=== PATIENT | male | born 1945 | race Caucasian/White ===

== ENCOUNTER → 2016-05-01 | Outpatient (CLI) | payer MEDICARE, OTHER ==
[~2016-05-01] MED LIST: ASPI-587 PO; CATHETER FLUSH 10 ML SYR IV PRN; DULA1.5P SQ; EZET10TA23 PO; GLIP10TA13 PO; HYDR-3730 PO; IOHEXOL 350 MG/ML 150 ML (OMNIPAQUE 350) VIAL IV ONE; MTF500T PO; NS 100 ML (IVPB) BAG IV ONE; OXYC-197 PO; SIMV20TA3 PO
--- OUTSIDE RECORDS SUMMARY | 2016-05-01 10:44 | XMS REPORT | Continuity of Care Document ---
Author Author [facility] Organization [facility] Address Unknown Phone Unavailable Allergies Active Description Code Type Severity Reaction Onset Reported/Identified Relationship to Patient Clinical Status Yes No Allergy Information Available [id number] Drug Allergy Unknown N/A 08/11/2014 Yes No Known Drug Allergies [id number] Drug Allergy Unknown N/ A 08/25/2014 Medications Problems Date Dx Coded Attending Type Code Diagnosis Diagnosed By 03/24/2014 ROBERTO ROY, BETTY R Ot 440.20 03/24/2014 ROBERTO ROY, BETTY R Ot 729.5 03/25/2014 ROBERTO ROY, BETTY R Ot 440.20 03/25/2014 ROBERTO ROY, BETTY R Ot 729.5 03/30/2014 ROBERTO ROY, BETTY R Ot 440.20 03/30/2014 ROBERTO ROY, BETTY R Ot 729.5 03/30/2014 ROBERTO ROY, BETTY R Ot 789.01 03/30/2014 ROBERTO ROY, BETTY R Ot 789.05 05/14/2014 ROBERTO ROY, BETTY R Ot 789.01 05/14/2014 ROBERTO ROY, BETTY R Ot 789.05 06/07/2014 ROBERTO ROY, BETTY R Ot 440.20 06/07/2014 ROBERTO ROY, BETTY R Ot 729.5 06/07/2014 ROBERTO ROY, BETTY R Ot 789.01 06/07/2014 ROBERTO ROY, BETTY R Ot 789.05 06/18/2014 ROBERTO ROY, BETTY R Ot 440.20 06/18/2014 ROBERTO ROY, BETTY R Ot 729.5 06/18/2014 ROBERTO ROY, BETTY R Ot 789.01 06/18/2014 ROBERTO ROY, BETTY R Ot 789.05 08/26/2014 PAVEL ROY, MAYITO Ot 250.00 DIAB PACO WO COMPL, TYPE II OR UNSPEC TY 08/26/2014 PAVEL ROY, MAYITO Ot 574.10 CHOLELITH W CHOLECYS NEC 09/02/2014 ROBERTO ROY, BETTY R Ot 789.09 09/10/2014 ROBERTO ROY, BETTY R Ot 789.09 09/22/2014 PAVEL ROY, MAYITO Ot 574.20 09/22/2014 PAVEL ROY, ETHELAAKI Ot V72.63 09/22/2014 PAVEL ROY, TAKAAKI Ot V72.81 09/22/2014 PAVEL ROY, TAKAAKI Ot V72.83 09/22/2014 PAVEL ROY, TAKAAKI Ot V74.8 10/15/2014 PAVEL ROY, ETHELAAALONZO Ot 574.20 10/15/2014 PAVEL ROY, TAKAAKI Ot V72.63 10/15/2014 PAVEL ROY, TAKAAKI Ot V72.81 10/15/2014 PAVEL ROY, TAKAAKI Ot V72.83 10/15/2014 PAVEL ROY, TAKAAKI Ot V74.8 12/08/2014 Ot R63.4 12/28/2014 PAVEL ROY, MAYITO Ot E11.9 TYPE 2 DIABETES MELLITUS WITHOUT COMPLIC 12/28/2014 PAVEL ROY, MAYITO Ot K43.2 INCISIONAL HERNIA WITHOUT OBSTRUCTION OR 12/29/2014 Ot R63.4 01/20/2015 Ot R63.4 05/02/2015 ROBERTO ROY, BETTY R Ot I71.4 05/02/2015 ROBERTO ROY, BETTY R Ot J43.9 05/02/2015 ROBERTO ROY, BETTY R Ot N28.89 05/02/2015 ROBERTO ROY, BETTY R Ot R91.1 05/24/2015 ROBERTO ROY, BETTY R Ot I71.4 05/24/2015 ROBERTO ROY, BETTY R Ot J43.9 05/24/2015 ROBERTO ROY, BETTY R Ot N28.89 05/24/2015 ROBERTO ROY, BETTY R Ot R91.1 06/08/2015 ROBERTO ROY, BETTY R Ot I71.4 ABDOMINAL AORTIC ANEURYSM, WITHOUT RUPTU 06/08/2015 ROBERTO ROY, BETTY R Ot J43.9 EMPHYSEMA, UNSPECIFIED 06/08/2015 BETTY MEJIA MD Ot N28.89 OTHER SPECIFIED DISORDERS OF KIDNEY AND 06/08/2015 BETTY MEJIA MD Ot R91.1 SOLITARY PULMONARY NODULE 07/20/2015 BETTY MEJIA MD Ot 440.20 ATHEROSCLEROSIS NORTHWAY ARTERIES EXTREMIT 07/20/2015 BETTY MEJIA MD Ot 729.5 PAIN IN LIMB 07/20/2015 BETTY MEJIA MD Ot 789.01 ABDOMINAL PAIN, RIGHT UPPER QUADRANT 07/20/2015 BETTY MEJIA MD Ot 789.05 ABDOMINAL PAIN, PERIUMBILIC 07/20/2015 BETTY MEJIA MD Ot 789.09 ABDOMINAL PAIN, OTHER SPECIFIED SITE 07/20/2015 MAYITO ZHAO MD Ot 574.20 CHOLELITHIASIS NOS 07/20/2015 MAYITO ZHAO MD Ot V72.63 PRE-PROCEDURAL LABORATORY EXAMINATION 07/20/2015 MAYITO ZHAO MD Ot V72.81 NGDX-XAN-HSFNOMMIY CARDIOVASCULAR 07/20/2015 MAYITO ZHAO MD Ot V72.83 EXAM PRE-OPERATIVE NEC 07/20/2015 MAYITO ZHAO MD Ot V74.8 SCREEN-BACTERIAL DIS NEC 07/20/2015 Ot R63.4 ABNORMAL WEIGHT LOSS 07/20/2015 MAYITO ZHAO MD Ot K43.2 INCISIONAL HERNIA WITHOUT OBSTRUCTION OR 07/20/2015 MAYITO ZHAO MD Ot Z01.818 ENCOUNTER FOR OTHER PREPROCEDURAL EXAMIN 07/20/2015 MAYITO ZHAO MD Ot Z11.2 ENCOUNTER FOR SCREENING FOR OTHER BACTER 07/20/2015 BETTY MEJIA MD Ot I71.4 ABDOMINAL AORTIC ANEURYSM, WITHOUT RUPTU 07/20/2015 BETTY MEJIA MD Ot J43.9 EMPHYSEMA, UNSPECIFIED 07/20/2015 BETTY MEJIA MD Ot N28.89 OTHER SPECIFIED DISORDERS OF KIDNEY AND 07/20/2015 BETTY MEJIA MD Ot R91.1 SOLITARY PULMONARY NODULE 10/05/2015 BETTY MEJIA MD Ot 440.20 ATHEROSCLEROSIS NORTHWAY ARTERIES EXTREMIT 10/05/2015 BETTY MEJIA MD Ot 729.5 PAIN IN LIMB 10/05/2015 BETTY MEJIA MD Ot 789.01 ABDOMINAL PAIN, RIGHT UPPER QUADRANT 10/05/2015 BETTY MEJIA MD Ot 789.05 ABDOMINAL PAIN, PERIUMBILIC 10/05/2015 BETTY MEJIA MD Ot 789.09 ABDOMINAL PAIN, OTHER SPECIFIED SITE 10/05/2015 MAYITO ZHAO MD Ot 574.20 CHOLELITHIASIS NOS 10/05/2015 MAYITO ZHAO MD Ot V72.63 PRE-PROCEDURAL LABORATORY EXAMINATION 10/05/2015 MAYITO ZHAO MD Ot V72.81 AWGD-RER-[id number] CARDIOVASCULAR 10/05/2015 MAYITO ZHAO MD Ot V72.83 EXAM PRE-OPERATIVE NEC 10/05/2015 MAYITO ZHAO MD Ot V74.8 SCREEN-BACTERIAL DIS NEC 10/05/2015 Ot R63.4 ABNORMAL WEIGHT LOSS 10/05/2015 MAYITO ZHAO MD Ot K43.2 INCISIONAL HERNIA WITHOUT OBSTRUCTION OR 10/05/2015 MAYITO ZHAO MD Ot Z01.818 ENCOUNTER FOR OTHER PREPROCEDURAL EXAMIN 10/05/2015 MAYITO ZHAO MD Ot Z11.2 ENCOUNTER FOR SCREENING FOR OTHER BACTER 10/05/2015 BETTY MEJIA MD Ot I71.4 ABDOMINAL AORTIC ANEURYSM, WITHOUT RUPTU 10/05/2015 BETTY MEJIA MD Ot J43.9 EMPHYSEMA, UNSPECIFIED 10/05/2015 BETTY MEJIA MD Ot N28.89 OTHER SPECIFIED DISORDERS OF KIDNEY AND 10/05/2015 BETTY MEJIA MD Ot R91.1 SOLITARY PULMONARY NODULE 10/06/2015 BETTY MEJIA MD R Ot I71.4 ABDOMINAL AORTIC ANEURYSM, WITHOUT RUPTU 10/06/2015 BETTY MEJIA MD Ot R91.1 SOLITARY PULMONARY NODULE 10/28/2015 BETTY MEJIA MD Ot I71.4 ABDOMINAL AORTIC ANEURYSM, WITHOUT RUPTU 10/28/2015 BETTY MEJIA MD Ot R91.1 SOLITARY PULMONARY NODULE 11/07/2015 BETTY MEJIA MD Ot I71.4 ABDOMINAL AORTIC ANEURYSM, WITHOUT RUPTU 11/07/2015 BETTY MEJIA MD Ot R91.1 SOLITARY PULMONARY NODULE 11/21/2015 SEGLIE MD, BETTY R Ot G62.9 POLYNEUROPATHY, UNSPECIFIED 11/21/2015 BETTY MEJIA MD R Ot M25.551 PAIN IN RIGHT HIP 11/21/2015 BETTY MEJIA MD R Ot M79.604 PAIN IN RIGHT LEG 12/15/2015 BETTY MEIJA MD R Ot G62.9 POLYNEUROPATHY, UNSPECIFIED 12/15/2015 BETTY MEJIA MD R Ot M25.551 PAIN IN RIGHT HIP 12/15/2015 BETTY MEJIA MD R Ot M79.604 PAIN IN RIGHT LEG 01/31/2016 BETTY MEJIA MD R Ot 440.20 ATHEROSCLEROSIS NORTHWAY ARTERIES EXTREMIT 01/31/2016 BETTY MEJIA MD R Ot 729.5 PAIN IN LIMB 01/31/2016 BETTY MEJIA MD R Ot 789.01 ABDOMINAL PAIN, RIGHT UPPER QUADRANT 01/31/2016 BETTY MEJIA MD R Ot 789.05 ABDOMINAL PAIN, PERIUMBILIC 01/31/2016 BETTY MEJIA MD R Ot 789.09 ABDOMINAL PAIN, OTHER SPECIFIED SITE 01/31/2016 MAYITO ZHAO MD Ot 574.20 CHOLELITHIASIS NOS 01/31/2016 MAYITO ZHAO MD Ot V72.63 PRE-PROCEDURAL LABORATORY EXAMINATION 01/31/2016 MAYITO ZHAO MD Ot V72.81 [id number]-[id number] CARDIOVASCULAR 01/31/2016 MAYITO ZHAO MD Ot V72.83 EXAM PRE-OPERATIVE NEC 01/31/2016 MAYITO ZHAO MD Ot V74.8 SCREEN-BACTERIAL DIS NEC 01/31/2016 Ot R63.4 ABNORMAL WEIGHT LOSS 01/31/2016 MAYITO ZHAO MD Ot K43.2 INCISIONAL HERNIA WITHOUT OBSTRUCTION OR 01/31/2016 MAYITO ZHAO MD Ot Z01.818 ENCOUNTER FOR OTHER PREPROCEDURAL EXAMIN 01/31/2016 MAYITO ZHAO MD Ot Z11.2 ENCOUNTER FOR SCREENING FOR OTHER BACTER 01/31/2016 BETTY MEJIA MD Ot I71.4 ABDOMINAL AORTIC ANEURYSM, WITHOUT RUPTU 01/31/2016 BETTY MEJIA MD Ot J43.9 EMPHYSEMA, UNSPECIFIED 01/31/2016 BETTY MEJIA MD R Ot N28.89 OTHER SPECIFIED DISORDERS OF KIDNEY AND 01/31/2016 BETTY MEJIA MD R Ot R91.1 SOLITARY PULMONARY NODULE 01/31/2016 BETTY MEJIA MD R Ot I71.4 ABDOMINAL AORTIC ANEURYSM, WITHOUT RUPTU 01/31/2016 BETTY MEJIA MD R Ot R91.1 SOLITARY PULMONARY NODULE 01/31/2016 BETTY MEJIA MD R Ot G62.9 POLYNEUROPATHY, UNSPECIFIED 01/31/2016 BETTY MEJIA MD R Ot M25.551 PAIN IN RIGHT HIP 01/31/2016 BETTY MEJIA MD R Ot M79.604 PAIN IN RIGHT LEG 02/01/2016 BETTY MEJIA MD R Ot R07.89 OTHER CHEST PAIN 02/27/2016 BETTY MEJIA MD R Ot R07.89 OTHER CHEST PAIN 03/07/2016 BETTY MEJIA MD R Ot R07.89 OTHER CHEST PAIN Procedures Results Test Result Range [id number] - 10/05/15 09:13 Serum or plasma urea nitrogen measurement (mass/volume) 11 mg/dL 7-18 Serum or plasma creatinine measurement (mass/volume) 1.13 mg /dL 0.60-1.30 Serum or plasma urea nitrogen/creatinine mass ratio 10 NRG Serum or plasma creatinine measurement with calculation of estimated glomerular filtration rate > NRG Encounters ACCT No. Visit Date/Time Discharge Status Pt. Type Provider Facility Loc./Unit Complaint [id number] 12/28/2014 08:26:00 2014 13:30:00 DIS Outpatient MAYITO ZHAO MD [facility] VENTAL INCISIONAL HERNIA [id number] 12/27/2014 13:14:00 2014 23:59:59 CLS Outpatient MAYITO ZHAO MD [facility] PREOP VENTERAL INCISIONAL HERNIA [id number] 08/26/2014 09:55:00 2014 17:25:00 DIS Outpatient MAYITO ZHAO MD [facility] GALLSTONES [id number] 08/25/2014 13:11:00 2014 23:59:59 CLS Outpatient MAYITO ZHAO MD [facility] PREOP GALLSTONES [id number] 08/11/2014 10:52:00 2014 23:59:59 CLS Outpatient BETTY MEJIA MD [facility] RAD PAIN ELEVATED IN LAST TWO WEEKS [id number] 03/24/2014 11:02:00 2014 23:59:59 CLS Outpatient BETTY MEJIA MD [facility] RAD PAIN RUQ RT PARA UMBILICAL [id number] 11/03/2012 14:36:00 2012 23:59:59 CLS Outpatient BETTY MEJIA MD [facility] RAD BILAT LEG PAIN [id number] 01/31/2016 14:36:00 ACT Outpatient BETTY MEJIA MD [facility] RAD LT SIDED CHEST WALL PAIN [id number] 10/28/2015 09:20:00 ACT Outpatient BETTY MEJIA MD [facility] RAD PAIN RT ISCHIUM [id number] 10/05/2015 08:57:00 ACT Outpatient BETTY MEJIA MD [facility] RAD LEFT LUNG NODULE, AAA [id number] 04/28/2015 13:38:00 ACT Outpatient BETTY MEJIA MD [facility] RAD AORTIC ANEURYSM,LEFT LUNG BASE NODULE [id number] 12/06/2014 15:40:00 Document Registration
[2016-05-01 11:21] LABS: BLOOD UREA NITROGEN 9 MG/DL (7-18); BUN/CREATININE RATIO 8; CREATININE SERUM 1.17 MG/DL (0.60-1.30); GFR ESTIMATED > 60
--- NOTE | 2016-05-01 12:55 | Diagnostic Imaging Report ---
PROCEDURE: CT chest, abdomen, and pelvis with contrast. TECHNIQUE: Multiple contiguous axial images were obtained through the chest, abdomen, and pelvis after the administration of intravenous contrast. INDICATION: AAA. Followup lung nodule. 125 mL of Omnipaque 350 is administered intravenously. Coronal and sagittal reconstructions are performed. Comparison exams from 10/05/15 are reviewed. FINDINGS: CT chest: There is a pulmonary nodule in the left lower lobe axial image 76 measuring 6 mm stable from prior exams and appears to be present also on 03/24/2014 exam. The two-year stability is suggestive of benign etiology, probably a postinfectious scar. Bilateral upper lobe predominant emphysema changes are seen. The lungs demonstrate no significant consolidation or mass. The heart size is normal. The thoracic aorta is dilated with maximum caliber of the ascending aorta at 4.3 cm. This is similar to 10/05/2015 exam. There is a borderline sized precarinal lymph node measuring 1 cm in short axis. There is also 1.6 cm right hilar lymph node. The left hilum demonstrates no adenopathy and there is no axillary lymphadenopathy. The osseous structures appear grossly unremarkable. CT abdomen and pelvis: There is an infrarenal AAA with maximum caliber of 3.2 cm. This is stable from 10/05/2015 exam. There is significant irregular mostly soft and some calcified plaque seen with an ulcerated plaque within the mid posterior aspect of the aneurysm. The celiac trunk and SMA have a common origin, a normal variation. There is an accessory left renal artery with stenosis of severe degree in its takeoff. There is mild to moderate stenosis also in the main left renal artery. The right renal artery demonstrates plaque with mild to moderate stenosis. Urinary bladder has diffuse wall thickening, may relate to chronic obstructive changes. There are central nonspecific calcifications of the prostate gland which is minimally enlarged at 5 cm transverse dimension. There is no bowel obstruction. The liver, the spleen, the pancreas, and the adrenal glands appear unremarkable. The common and external and internal iliac arteries demonstrate generally mild disease and are patent. No para-aortic significantly enlarged lymph nodes. No pelvic lymphadenopathy seen. There is suggestion of prior ventral hernia repair with no recurrence seen. The osseous structures appear grossly unremarkable. IMPRESSION: CT chest: 1. Stable 6 mm left lower lobe pulmonary nodule compatible with benign etiology. 2. Ascending aortic aneurysm measuring up to 4.3 cm without significant change from prior exams. 3. Emphysema. 4. Borderline sized lymph nodes in the right hilum and precarinal station of questionable significance. CT abdomen and pelvis: Stable 3.2 cm infrarenal AAA. There is prominent soft and ulcerated atherosclerotic plaque within the aneurysm. Dictated by: Dictated on workstation # [id number]
== END ==
LOC: RAD 10:39
PROVIDERS: ATTEND Family Medicine
DX: I71.4 Abdominal aortic aneurysm, without rupture (principal); R91.1 Solitary pulmonary nodule; J43.9 Emphysema, unspecified
CPT/HCPCS: 36415; 71260; 74177; 82565; 84520

== ENCOUNTER → 2016-11-15 | Outpatient (CLI) | payer MEDICARE, OTHER ==
[~2016-11-15] MED LIST changes: -CATHETER FLUSH 10 ML SYR IV PRN; -IOHEXOL 350 MG/ML 150 ML (OMNIPAQUE 350) VIAL IV ONE; -NS 100 ML (IVPB) BAG IV ONE
--- NOTE | 2016-11-15 12:24 | Diagnostic Imaging Report ---
PROCEDURE: MRI lumbar spine. TECHNIQUE: Multiplanar, multisequence MRI of the lumbar spine was performed without contrast. INDICATION: Low back pain. FINDINGS: The alignment of the lumbar spine is satisfactory. There is mild reduction of the vertebral body heights and the central aspect of mid and lower lumbar spine levels. The pattern is suggestive of depression of endplates from Schmorl's nodes rather than related to compression fractures. There is no significant marrow signal abnormality in the vertebral bodies. Mild marrow edema is seen in the right pedicle at L4 level. This appears to be related to adjacent facet arthropathy involving L3-L4 and L4-L5 right facet joints which demonstrate small effusions and degenerative changes. There is disc desiccation at all levels with no significant disc height loss at any level. The cauda equina and conus medullaris appear grossly unremarkable. T12-L1: No disc herniation, no spinal canal or foraminal stenosis. L1-L2: No disc herniation, no spinal canal or foraminal stenosis. L2-L3: There is no disc herniation. There is ludo-ck-adlagnbr facet arthropathy. No central canal stenosis. There is afsg-mw-koykdemo lateral recess stenosis on the left side. No lateral recess stenosis on the right. The foramina demonstrate mild stenosis on the right side only at this level. L3-L4: There is a mild asymmetric disc bulge with no significant posterior component. There is bilateral foraminal and lateral compartments. The facet joints demonstrate moderate arthropathy. No central canal stenosis. The lateral recess demonstrates mild stenosis on the left and no significant stenosis on the right. The foramina demonstrate mild stenosis bilaterally. L4-L5: There is a diffuse disc bulge and bilateral moderate facet arthropathy. No central canal stenosis. There is mild lateral recess stenosis on the left. Bilateral foraminal stenosis mild on the left and moderate on the right is seen. There is no disc herniation. Mild facet arthropathy seen. No central canal or lateral recess stenosis. There is vdhm-bi-eyqeylnk foraminal narrowing only on the right side. The left foramen is patent. IMPRESSION: Generally mild degenerative disc and facet changes. Dictated by: Dictated on workstation # [id number]
== END ==
LOC: RAD 09:07
PROVIDERS: ATTEND Internal Medicine
DX: M54.5 Low back pain (principal)
CPT/HCPCS: 72148

== ENCOUNTER → 2016-11-28 | Outpatient (CLI) | payer MEDICARE, OTHER ==
--- NOTE | 2016-11-28 15:24 | Diagnostic Imaging Report ---
PROCEDURE: MRI left joint lower extremity without contrast. TECHNIQUE: Multiplanar, multisequence non contrast-enhanced MRI of the left lower extremity was accomplished. INDICATION: Left knee pain. FINDINGS: There is minimal suprapatellar effusion. No Poe's cyst. The extensor mechanism is intact. The PCL and the ACL are both intact. The lateral meniscus appears intact. There is an oblique tear involving the posterior horn of the medial meniscus extending to the body of the meniscus. Anterior horn is intact. There is minimal extension of the tear to the posterior root of the medial meniscus. The MCL and the lateral collateral ligament complex components appear to be intact. The articular cartilage demonstrates mild diffuse thinning in the medial compartment with relatively preserved cartilage in the lateral and patellofemoral compartments. No significant bone marrow signal abnormality. IMPRESSION: 1. Prominent oblique tear involving the posterior horn of the medial meniscus with extension into the body of the meniscus and minimal extension into the posterior root. 2. Mild thinning of the cartilage in the medial compartment compatible with degenerative changes. Dictated by: Dictated on workstation # [id number]
== END ==
LOC: RAD 13:01
PROVIDERS: ATTEND Internal Medicine
DX: S83.242A Other tear of medial meniscus, current injury, left knee, initial encounter (principal); X58.XXXA Exposure to other specified factors, initial encounter; Y99.8 Other external cause status
CPT/HCPCS: 73721

== ENCOUNTER 2017-01-02 11:25 | Day surgery (SDC) | payer MEDICARE, OTHER ==
--- NOTE | 2016-12-24 15:51 | HISTORY AND PHYSICAL ---
DATE OF SERVICE: LAST-FOUR SOCIAL SECURITY: 6908 This will be for outpatient surgery on 01/02/2017, for a left knee arthroscopy. HISTORY OF PRESENT ILLNESS: The patient is a 71-year-old gentleman with complaints of left knee pain. He reports he has had left knee pain since September. He reports that episodes of catching, locking and giving way. He ultimately underwent an MRI that showed evidence of a complex tear of the posterior horn and body of the medial meniscus. He reports no prior history of knee problems. He does report some back pain but denies paresthesias. REVIEW OF SYSTEMS: No chest pain, no shortness of breath, and no dysuria. PAST MEDICAL HISTORY: Diabetes, hypercholesterolemia, atherosclerotic heart disease, and abdominal herniorrhaphy. PAST SURGICAL HISTORY: CABG, cardiac catheterization, cholecystectomy, and herniorrhaphy. FAMILY HISTORY: Coronary artery disease, diabetes. Primary care provider is Dr. Gupta. MEDICATIONS: Zetia, simvastatin, Synjardy, aspirin, and tramadol. ALLERGIES: No known drug allergies. SOCIAL HISTORY: The patient is a current smoker. He smokes 1 pack per day. He drinks alcohol socially. Radiographs revealed mild medial patellofemoral joint space narrowing. PHYSICAL EXAMINATION: GENERAL: The patient is well developed and well-nourished, in no acute distress. HEENT: Normocephalic, atraumatic. Pupils are equal, round, and reactive to light. Oropharynx is clear. NECK: Supple, no lymphadenopathy. LUNGS: Clear to auscultation bilaterally. HEART: Regular rate and rhythm. ABDOMEN: Soft, nontender, and nondistended. EXTREMITIES: The left knee demonstrates range of motion 0/0/135. He has positive drawers with audible click medially. He is tender along his medial joint line and slight effusion. No varus valgus laxity, negative anterior and posterior drawer, and negative Marcel. IMPRESSION: Medial meniscal tear with associated chondromalacia. PLAN: Left knee arthroscopy, chondroplasty and partial meniscectomy. The risks, benefits, options ramifications and recovery were discussed at length with the patient. He understands and wishes to proceed. Job ID: [id number] DocumentID: [id number] Dictated Date: 12/24/2016 14:18:32 Range Ecologist Date: 12/24/2016 15:51:03 Dictated By: GREG RIOS MD
[~2017-01-02] VITALS: Ht 180.3 cm; Wt 81.0 kg
[~2017-01-02 11:25] MED LIST changes: +ASPI-999 PO; +EMPA1TAB5 PO; +EZET10TA27 PO; +TRAM50TA2 PO
[2017-01-02] MEDS ORDERED: ceFAZolin 1 GM/NS 50 ML IVPB IV ONE ×2 (11:45)
--- NOTE | 2017-01-02 11:51 | Progress Note-Pre Operative ---
Pre-Operative Progress Note H&P Reviewed The H&P was reviewed, patient examined and no changes noted. Date Seen by Provider: Jan 02, 2017 Time Seen by Provider: 11:45 Date H&P Reviewed: Jan 02, 2017 Time H&P Reviewed: 11:51 Pre-Operative Diagnosis: left knee medial meniscus tear and chondromalacia GREG RIOS MD Jan 02, 2017 11:51
--- NOTE | 2017-01-02 11:52 | Progress Note-Post Operative ---
Post-Operative Progess Note Surgeon (s)/Slot Floor Attendant (s) Surgeon GREG RIOS MD Slot Floor Attendant: Osito Mcneill Pre-Operative Diagnosis left knee medial meniscus tear and chondromalacia Post-Operative Diagnosis left knee medial meniscus tear and chondromalacia of the medial femoral condyle Procedure & Operative Findings Date of Procedure 01/02/17 Procedure Performed/Findings left knee arthroscopic partial medial meniscectomy and chondroplasty of the medial femoral condyle Anesthesia Type GETA Estimated Blood Loss Estimated blood loss (mL): minimal Specimens/Packing Specimens Removed none Packing: none GREG RIOS MD Jan 02, 2017 11:52
[2017-01-02] MEDS ORDERED: HYDROcodone/APAP 7.5 MG/325 MG (LORTAB, LORCET PLUS) TABLET PO PRN (12:00)
[2017-01-02] MEDS ORDERED: LACTATED RINGERS 1,000 ML IV PRN (12:37)
[2017-01-02] MEDS ORDERED: MIDAZOLAM 2 MG/2 ML (VERSED) VIAL IV ONE (13:00)
[2017-01-02] MEDS ORDERED: BUPIVACAINE 0.25% 30 ML (SENSORCAINE) VIAL ONE (13:03)
[2017-01-02] MEDS ORDERED: morphine PF (DURAMORPH) 10 MG/10 ML AMP ONE (13:03)
[2017-01-02] MEDS ORDERED: proPOfol 200 MG/20 ML (DIPRIVAN) VIAL IV ONE (13:48)
[2017-01-02] MEDS ORDERED: LIDOCAINE PF 2% 5 ML (XYLOCAINE) VIAL ONE (13:48)
[2017-01-02] MEDS ORDERED: SEVOFLURANE (ULTANE) 15 ML INHAL SOLN ONE (13:48)
[2017-01-02] MEDS ORDERED: fentaNYL INJECTION 100 MCG/2 ML AMP ONE (13:48)
[2017-01-02] MEDS ORDERED: ONDANSETRON 4 MG/2 ML (SDV) Z0FRAN ONE (13:48)
[2017-01-02] MEDS: LACTATED RINGERS 1,000 ML IV PRN ×2 (14:05→14:19)
[2017-01-02] MEDS ORDERED: ONDANSETRON 4 MG/2 ML (SDV) Z0FRAN IVP PRN (14:45)
[2017-01-02] MEDS ORDERED: morphine INJ 10 MG/ML 1ML (SYR OR VIAL) IVP PRN (14:45)
[2017-01-02 15:35] VITALS: BP 178/85
[2017-01-02 16:05] VITALS: BP 188/84
[2017-01-02 16:06] VITALS: BP 188/84
--- NOTE | 2017-01-02 16:58 | Physical Therapy Ortho Eval ---
PT Orthopedic Evaluation Type of Surgery Knee Scope (left) Prior Level of Function Current Living Status: Spouse Locomotion (Upon Admit): Independent Established Durable Medical Eq: Crutches Subjective Subjective Agreeable and no complaints. Entry Into Home: Stairs With Railing Steps Into Home: 3 Motor Control Motor Control: Motor Control WNL ROM ROM: WFL Strength Strength: WFL Transfer Transfers (B, C, W/C) (FIM): 5 (6 at discharge) Gait Gait Assistive Device: Crutches Right Lower Extremity: Right Weight Bearing Status RLE: Weight Bearing/Tolerated Left Lower Extremity: Left Weight Bearing Status LLE: Weight Bearing/Tolerated Gait (FIM): 5 (6 at discharge) Distance (FIM): 3=150 ft Summary/Comments Instruction in 2 crutch and 1 crutch gait. Safe with both. Educated on safety with crutches. Treatment Rendered Treatment: Therapeutic Exercises, Gait Train, Step Train Exercise Instruction: Quad Sets, Straight Leg Raise, Heel Slides Assessment/Goals Goal Time Frame: 1 Visit Understands HEP: Yes Safe Ambulation: Yes Plan Treatment Plan: Discharge PT/Family Agrees to Plan: Yes Time Time In: 1415 Time Out: 1635 Total Billed Treatment Time: 20 Billed Treatment Time visit EVL PT/OT Therapy GCodes Therapy Functional Limitation: Physical Therapy Test(s)/Tool used to determine: Level of Assistance Scale Functional Limitation-Current Charge Code: MOBCUR Modifier: CJ Functional Limitation-Goal Charge Code: MOBGOAL Modifier: CI Functional Limitation-D/C Charge Codes: MOBDC Modifier: CI KEELY VILLA PT Jan 02, 2017 16:58
--- NOTE | 2017-01-02 19:15 | OPERATIVE REPORT ---
DATE OF SERVICE: 01/02/2017 PREOPERATIVE DIAGNOSIS: Left knee medial meniscal tear. POSTOPERATIVE DIAGNOSES: 1. Left knee medial meniscal tear. 2. Left knee chondromalacia of the medial femoral condyle. PROCEDURES: 1. Left knee arthroscopic partial medial meniscectomy. 2. Left knee arthroscopic chondroplasty of the medial femoral condyle. SURGEON: Robin Rios MD. MEDIA ACCOUNT EXECUTIVE: Osito Mcneill, who assisted throughout the procedure and closed the incisions. ANESTHESIA: General endotracheal by Dr. Booker. TOURNIQUET TIME: Not applicable. ESTIMATED BLOOD LOSS: Minimal. DRAINS: None. COMPLICATIONS: None. POSTOPERATIVE PLAN: Routine arthroscopy protocol. The patient was transported to the recovery room awake and in stable condition. STATEMENT OF MEDICAL NECESSITY: The patient is a 71-year-old gentleman with complaints of left medial knee pain, catching, locking and swelling. An MRI revealed a posterior horn and body medial meniscus tear. He complained of popping and catching in his knee and due to functional impairment and failure to improve with conservative measures, the patient elected to proceed with surgical intervention. Examination under anesthesia revealed range of motion 0/0/135 with a negative Marcel, negative anterior, posterior drawer. No varus valgus laxity, negative pivot shift. Arthroscopic findings patellar trochlea demonstrated no gross chondral abnormalities. The medial and lateral gutters were clear. Lateral compartment demonstrated no significant meniscal or chondral pathology. The ACL and PCL were intact. The medial compartment demonstrated complex tear of the posterior horn and body of the medial meniscus involving approximately 1/2 of the posterior horn and body in addition to grade II-III chondral flaps over the central lateral aspect of the femoral condyle in a 10 x 15 area. PROCEDURE IN DETAIL: After risks and benefits of procedure were discussed and questions were answered, informed consent signed and placed in the chart. The operative site was confirmed preoperatively initialed by surgeon. The patient was then transported to the operating room and after adequate levels of general endotracheal anesthetic were taken, a timeout was called confirming the operative site. Examination under anesthesia was performed with the above findings noted. Both lower extremities then prepped and draped in the usual sterile fashion. The knee joint was injected with 60 mL of fluid and a standard inferolateral portal was placed with the arthroscope under direct visualization, inferior medial portal was created. The menisci and cruciates were carefully probed with the above findings noted. The unstable chondral flaps in the medial femoral condyle were debrided with the shaver back to a stable edge. The posterior horn and body of the medial meniscus were debrided with the biter and shaver removing approximately 1/2 the posterior horn and body. This was carefully probed with no further tearing or instability noted. The knee was copiously irrigated. Port sites were closed with 3-0 nylon in simple interrupted fashion. Knee was injected with Duramorph. The portal sites were infiltrated with plain Marcaine and a soft dressing was applied and the patient was transported to the recovery room, awake and in stable condition. Job ID: [id number] DocumentID: [id number] Dictated Date: 01/02/2017 14:42:42 Telephone Recorder Date: 01/02/2017 19:14:53 Dictated By: ROBIN RIOS MD
== END 2017-01-02 16:40 | disposition home or self-care (01) ==
LOC: SDC 11:25
PROVIDERS: ATTEND Orthopaedic Surgery
DX: M23.8X2 Other internal derangements of left knee (principal); M94.262 Chondromalacia, left knee; E11.9 Type 2 diabetes mellitus without complications; E78.00 Pure hypercholesterolemia, unspecified; I25.10 Atherosclerotic heart disease of native coronary artery without angina pectoris; Z95.1 Presence of aortocoronary bypass graft; F17.210 Nicotine dependence, cigarettes, uncomplicated; Z87.442 Personal history of urinary calculi
CPT/HCPCS: 82962

== ENCOUNTER → 2017-01-29 | Outpatient (CLI) | payer MEDICARE, OTHER ==
--- NOTE | 2017-01-29 12:43 | Diagnostic Imaging Report ---
Ultrasound of the aorta. INDICATION: Abdominal aortic aneurysm. FINDINGS: The abdominal aorta is 2.5 cm in caliber proximally, 2.6 cm at mid segment and 3 x 3.5 cm distally. The largest caliber on previous CT of 05/01/2016 is 3.2 cm. Flow is seen with color Doppler. The common iliac arteries are not visualized. IMPRESSION: Infrarenal AAA up to 3.5 cm in caliber, compared to 3.2 cm measurement on 05/01/2016 CT scan. Dictated by: Dictated on workstation # [id number]
== END ==
LOC: RAD 07:18
PROVIDERS: ATTEND Internal Medicine
DX: I71.2 Thoracic aortic aneurysm, without rupture (principal)
CPT/HCPCS: 76775

== ENCOUNTER → 2017-03-12 | Outpatient (CLI) | payer MEDICARE, OTHER ==
[~2017-03-12] MED LIST changes: +IOHEXOL 350 MG/ML 100 ML (OMNIPAQUE 350) VIAL IV ONE; +NS 100 ML (IVPB) BAG IV ONE
[2017-03-12 09:38] LABS: BUN/CREATININE RATIO 9; CREATININE SERUM 1.08 MG/DL (0.60-1.30); GFR ESTIMATED > 60
--- NOTE | 2017-03-12 10:19 | Diagnostic Imaging Report ---
PROCEDURE: CT chest with contrast only. TECHNIQUE: Multiple contiguous axial images were obtained through the chest after administration of intravenous contrast. INDICATION: Thoracic aneurysm, followup. Comparison is made with prior CT chest from 05/01/2016. No axillary lymphadenopathy is identified. Right paratracheal and right hilar lymph nodes are stable when compared with prior CT. Left hilum is unremarkable. No pericardial or pleural fluid is identified. Ascending thoracic aorta dilatation is stable at 4.2 cm transverse. No dissection is seen. There are changes of median sternotomy. There are centrilobular emphysematous changes identified in both lungs. Left lower lobe nodule, image 43 is stable at 5 mm. No new parenchymal mass or nodule is seen. The upper abdomen is unremarkable. IMPRESSION: Stable CT of the chest when compared with examination from 05/01/2016. Dictated by: Dictated on workstation # [id number]
== END ==
LOC: RAD 09:01
PROVIDERS: ATTEND Internal Medicine
DX: I71.2 Thoracic aortic aneurysm, without rupture (principal)
CPT/HCPCS: 36415; 71260; 82565; 84520

== ENCOUNTER → 2017-07-08 | Outpatient (CLI) | payer MEDICARE, OTHER ==
[~2017-07-08] MED LIST changes: -IOHEXOL 350 MG/ML 100 ML (OMNIPAQUE 350) VIAL IV ONE; -NS 100 ML (IVPB) BAG IV ONE
--- NOTE | 2017-07-08 13:36 | Diagnostic Imaging Report ---
INDICATION: Chest and rib pain. FINDINGS: No lung contusion, pneumothorax or hemothorax. Sternal wires project midline and intact. No bony destructive process or fracture revealed. IMPRESSION: No acute-appearing abnormality. Dictated by: Dictated on workstation # [id number]
== END ==
LOC: RAD 11:10
PROVIDERS: ATTEND Internal Medicine
DX: R07.81 Pleurodynia (principal)
CPT/HCPCS: 71100

== ENCOUNTER → 2018-01-01 | Outpatient (CLI) | payer MEDICARE, OTHER ==
[~2018-01-01] MED LIST changes: -OXYC-197 PO; +OXYC1TAB87 PO
--- NOTE | 2018-01-01 08:27 | Diagnostic Imaging Report ---
CLINICAL INDICATION: Patient with pain under right rib cage and gallbladder area. Patient has mesh from hernia and gallbladder resection. EXAM: CT scan of the abdomen performed without IV contrast or enteric contrast. COMPARISON: CT scan of the chest, abdomen, and pelvis dated 05/01/2016. Visualized lung bases are clear. There is no evidence of intra-abdominal free air or free fluid. The liver, spleen, pancreas, and adrenal glands are unremarkable. Gallbladder surgically resected. Again seen exophytic cyst involving the posterior inferior aspect of the right kidney. Both kidneys are otherwise unremarkable. There is no lymphadenopathy. Stable mid infrarenal abdominal aortic aneurysm. This measures 3.2 cm in greatest axial dimension. Visualized portion of the intestines show no significant abnormalities. There is no thoracic cage or extra-thoracic soft tissue abnormality. There is no rib fracture or rib bony destructive process. There are small degenerative spurs involving the visualized portions of the thoracic and lumbar spine. There is chronic compression deformity seen throughout the visualized lower thoracic and lumbar vertebra. IMPRESSION: 1: There is no evidence of acute abdominal process. 2: There is no acute fracture or dislocation. There is no rib fracture or bony destructive process. 3: There is no interval acute abdominal process. Cholecystectomy changes are seen. 4: Stable mid infrarenal abdominal aortic aneurysm. Dictated by: Dictated on workstation # [id number]
== END ==
LOC: RAD 07:24
PROVIDERS: ATTEND Family Medicine
DX: I71.4 Abdominal aortic aneurysm, without rupture (principal); Z90.49 Acquired absence of other specified parts of digestive tract; Z96.9 Presence of functional implant, unspecified
CPT/HCPCS: 74150

== ENCOUNTER → 2018-01-02 | Outpatient (CLI) | payer MEDICARE, OTHER ==
--- NOTE | 2018-01-02 09:25 | Diagnostic Imaging Report ---
EXAM: T-SPINE 3V-AP, LAT, SWIMMERS INDICATION: MID THORACIC PAIN COMPARISON: CT chest, abdomen and pelvis with IV contrast 05/01/2016. FINDINGS: Normal alignment. Vertebral body heights are preserved. No fractures. Mild degenerative endplate changes. No suspicious osteoblastic or lytic lesions. Sternotomy. The visualized lung stern are clear. IMPRESSION: Mild spondylotic changes in the thoracic spine. No acute osseous findings. Dictated by: Dictated on workstation # [id number]
== END ==
LOC: RAD 08:49
PROVIDERS: ATTEND Family Medicine
DX: M47.814 Spondylosis without myelopathy or radiculopathy, thoracic region (principal)
CPT/HCPCS: 72072

== ENCOUNTER → 2018-09-23 | Outpatient (CLI) | payer MEDICARE, OTHER ==
[~2018-09-23] MED LIST changes: -EZET10TA27 PO; +EZET10TA49 PO
--- NOTE | 2018-09-23 14:13 | Diagnostic Imaging Report ---
PROCEDURE: CT chest and abdomen without contrast. TECHNIQUE: Axial images were obtained from the thoracic inlet through the iliac crest without the administration of intravenous contrast. Auto Exposure Controls were utilized during the CT exam to meet ALARA standards for radiation dose reduction. INDICATION: Pulmonary nodule. Abdominal aortic aneurysm. CORRELATION STUDY: CT abdomen 01/01/2018; CT chest 03/12/2017, 05/01/2016, and 12/06/2014. FINDINGS: CT CHEST: Post-sternotomy changes. Heart size is normal. Coronary artery calcifications. The thoracic aortic contour demonstrates slightly prominent appearance about the ascending aorta, maximum dimension at 4.4 cm. No periaortic fluid collections. A few mildly prominent but non-pathologically enlarged mediastinal lymph nodes. Gastroesophageal junction is unremarkable. Lung stern are clear of infiltrate. Emphysematous changes about the lung parenchyma with more focal slight honeycombing and destructive changes about the posterior aspect of the bilateral upper and superior aspect of the lower lobes. No pulmonary infiltrate. Approximately 5 mm nodule in the posterolateral left lower lobe, stable. Questionable area of nodularity in the posterior right main bronchus, fairly sessile in its appearance. CT ABDOMEN: Unenhanced liver, spleen, pancreas, and adrenal glands are unremarkable. 18 mm low-density exophytic mass in the inferior pole of the right kidney favors probable cyst. Partially visualized gastrointestinal tract with moderate severity fecal retention within the colon. Stomach is mildly distended with retained gastric contents. Slight nodularity in the anterior abdominal wall may be on a postoperative basis. Moderate wall calcification of the abdominal aorta as well as its major branches. Calcification of the bilateral common iliac arteries. Maximum dimension of the abdominal aorta is 3.3 cm. IMPRESSION: CT CHEST: 1. 5 mm nodule in the left lower lobe, generally stable dating back to 2014 favoring benign process. 2. Questionable sessile area of nodularity in the posterior right main bronchus. This may very well simply represent secretions. Possibility of true endobronchial nodule is not excluded. Followup imaging as clinically warranted. CT ABDOMEN: 1. Significant atherosclerotic change about the abdominal aorta and major branches. Mild abdominal aortic aneurysmal dilatation, maximum dimension 3.3 cm. Dictated by: Dictated on workstation # [id number]
== END ==
LOC: RAD 08:04
PROVIDERS: ATTEND Family Medicine
DX: I71.4 Abdominal aortic aneurysm, without rupture (principal); R91.1 Solitary pulmonary nodule; Z98.890 Other specified postprocedural states
CPT/HCPCS: 71250; 74150

== ENCOUNTER → 2018-09-29 | Outpatient (CLI) | payer MEDICARE, OTHER ==
[~2018-09-29] MED LIST changes: +CLON-445 PO; +GABA-486 PO; +HYDR-3820 PO; +LOSA50TA63 PO; +MELA10TA10 SL
[2018-09-29 10:41] LABS: ABG BASE EXCESS 2.7 MMOL/L (-2.5-2.5); ABG OXYGEN SATURATION 93 % (94-100); ABG PCO2 49 MMHG (35-45); ABG PH 7.37 (7.37-7.43); ABG PO2 60 MMHG (79-93); ABG TCO2 28.8 MMOL/L (21.0-31.0); ALLENS TEST POSITIVE; PATIENT TEMP 96.6; VENTILATOR NO
--- NOTE | 2018-09-29 10:55 | NUR ---
PATIENT WAS NOT O2 WHEN HE CAME IN FOR THE PULMONARY STRESS TEST RA 91%; PATIENT STOOD UP AND WAS 91% PATIENT WALKED FOR 6 MINS AND DID NOT DESAT BELOW 92%. O2 WAS NOT NEEDED AT REST OR ON EXERTION
== END ==
LOC: RT 10:05
PROVIDERS: ATTEND Nurse Practitioner Family
DX: J44.9 Chronic obstructive pulmonary disease, unspecified (principal); J30.9 Allergic rhinitis, unspecified; R63.4 Abnormal weight loss; Z72.0 Tobacco use
CPT/HCPCS: 36600; 82805; 94761

== ENCOUNTER → 2018-09-30 | Outpatient (CLI) | payer MEDICARE, OTHER | LOC: PREOP 06:34 | PROVIDERS: ATTEND Internal Medicine Critical Care Medicine | DX: Z01.818 Encounter for other preprocedural examination (principal); J30.9 Allergic rhinitis, unspecified; J44.9 Chronic obstructive pulmonary disease, unspecified; Z72.0 Tobacco use ==

== ENCOUNTER 2018-10-02 07:24 | Day surgery (SDC) | payer MEDICARE, OTHER ==
[~2018-10-02] VITALS: Ht 180.3 cm; Wt 81.0 kg
[2018-10-02] VITALS (20 sets, daily range): BP systolic 146–250; BP diastolic 40–121
[~2018-10-02 07:24] MED LIST changes: -CLON-445 PO; -GABA-486 PO; -HYDR-3820 PO; -LOSA50TA63 PO; -MELA10TA10 SL
[2018-10-02] MEDS ORDERED: LIDOCAINE PF 1% 2 ML VIAL IJ ONE (07:25)
[2018-10-02] MEDS ORDERED: LIDOCAINE PF 2% 5 ML (XYLOCAINE) VIAL INJ ONE (07:25)
[2018-10-02] MEDS ORDERED: LIDOCAINE JELLY 2% 6 ML SYRINGE TOP ONE (07:25)
[2018-10-02] MEDS ORDERED: NS IV 500 ML 500 ML IV PRN (07:36)
[2018-10-02] MEDS ORDERED: NS IV 500 ML 500 ML ONE (07:36)
[2018-10-02] MEDS ORDERED: MIDAZOLAM 2 MG/2 ML (VERSED) VIAL IVP ONE (07:45)
[2018-10-02] MEDS ORDERED: fentaNYL INJECTION 100 MCG/2 ML AMP IVP ONE (07:45)
[2018-10-02] MEDS ORDERED: GABA-486 PO (08:12)
--- NOTE | 2018-10-02 08:13 | Progress Note-Pre Operative ---
Pre-Operative Progress Note H&P Reviewed The H&P was reviewed, patient examined and no changes noted. Time Seen by Provider: 08:12 Date H&P Reviewed: Oct 02, 2018 Time H&P Reviewed: 08:12 Pre-Operative Diagnosis: MARISOL Freed DO Oct 02, 2018 08:13
--- NOTE | 2018-10-02 08:13 | Pre-Op Note & Conscious Sedat ---
Pre-Operative Progress Note H&P Reviewed The H&P was reviewed, patient examined and no changes noted. Date H&P Reviewed: Oct 02, 2018 Time H&P Reviewed: 08:13 Conscious Sedation Pre-Proced Time 08:12 ASA Score 3 For ASA 3 and 4: Consider anesthesia and medical clearance. Also, for patients with a history of failed moderate sedation consider anesthesia. Airway Lungs Heart ASA score ASA 1: a normal healthy patient ASA 2: a patient with a mild systemic disease (mid diabetes, controlled hypertension, obesity ASA 3: a patient with a severe systemic disease that limits activity (angina, COPD, prior Myocardial infarction) ASA 4: a patient with an incapacitating disease that is a constant threat to life (CHF, renal failure) ASA 5: a moribund patient not expected to survive 24 hrs. (ruptured aneurysm) ASA 6: a declared brain- patient whose organs are being harvested. For emergent operations, add the letter E after the classification Mallampati Classification Grade 3 Sedation Plan Analgesia, Amnesia, Plan communicated to team members, Discussed options with patient/fam, Discussed risks with patient/fam The patient is an appropriate candidate to undergo the planned procedure, sedation, and anesthesia. The patient immediately re-assessed prior to indication. MARISOL SEGURA DO Oct 02, 2018 08:13
[2018-10-02] MEDS ORDERED: HYDR-3820 PO (08:14)
--- NOTE | 2018-10-02 08:14 | Pulmonary Procedures ---
Pulmonary Procedures Date of Procedure Date of Service: Oct 02, 2018 Bronch Bronchoscopy with bronchoalveolar lavage (BAL), transbronchial washes and, brushes. Preop DX ILD Postop DX: same Complications: none After informed consent obtained and formal time out pt was sedated using Fentanyl and Versed. Bronchoscope was advanced through the nare and vocal cords. 1% lidocaine was used to anesthetize vocal cords, epiglottis, dax, and le ft/right main stem bronchus. An anatomical tour was undertaken down to the segmental bronchi bilaterally. No endobronchial lesions noted. From the RML a bronchoalveolar lavage (BAL), transbronchial washes and, brushes were obtained. Pt tolerated procedure well. No complications noted. Stat CXR is pending. MARISOL SEGURA DO Oct 02, 2018 08:14
[2018-10-02] MEDS ORDERED: MELA10TA10 SL (08:15)
[2018-10-02] MEDS ORDERED: MIDAZOLAM 2 MG/2 ML (VERSED) VIAL ONE ×2 (08:29)
[2018-10-02] MEDS ORDERED: fentaNYL INJECTION 100 MCG/2 ML AMP ONE ×2 (08:29→08:56)
[2018-10-02] MEDS ORDERED: hydrALAZINE (APESOLINE) 20 MG/ML VIAL ONE (08:42)
[2018-10-02] MEDS ORDERED: ENALAPRILAT 2.5 MG/2 ML (VASOTEC) VIAL IV ONE ×2 (08:42→09:30)
[2018-10-02] MEDS ORDERED: cloNIDine 0.1 MG (CATAPRES) TAB PO ONE (09:30)
[2018-10-02] MEDS ORDERED: hydrALAZINE (APESOLINE) 20 MG/ML VIAL IV ONE (09:30)
--- NOTE | 2018-10-02 10:35 | Diagnostic Imaging Report ---
INDICATION: Post bronchoscopy. FINDINGS: There is no pneumothorax or pneumomediastinum. There is chronic prominence of the lung markings and symmetrical air trapping, chronic. Sternal wires are midline. Aortic contour and cardiomediastinal silhouette unchanged from thoracic spine radiographs performed 01/02/2018. IMPRESSION: Chronic air trapping, chronic prominence of the thoracic aortic shadow, tortuous or ectatic, unchanged. No pneumothorax or post procedural complication apparent. Dictated by: Dictated on workstation # [id number]
[2018-10-02] MEDS ORDERED: LOSA50TA63 PO (10:49)
[2018-10-02] MEDS ORDERED: CLON-445 PO (10:49)
[2018-10-02 11:40] LABS: BF OTHER CELLS 13 %; BODY FLUID APPEARENCE MOD CLDY; BODY FLUID COLOR RED; BODY FLUID SOURCE BRONCH; LYMPHOCYTES,BODY FLUID 6 %
== END 2018-10-02 11:00 | disposition home or self-care (01) ==
LOC: ENDO 07:24
PROVIDERS: ATTEND Internal Medicine Critical Care Medicine
DX: J84.9 Interstitial pulmonary disease, unspecified (principal); J30.9 Allergic rhinitis, unspecified; J44.9 Chronic obstructive pulmonary disease, unspecified; R63.4 Abnormal weight loss; Z79.899 Other long term (current) drug therapy; Z79.82 Long term (current) use of aspirin; Z79.84 Long term (current) use of oral hypoglycemic drugs; Z72.0 Tobacco use
CPT/HCPCS: 71045; 87015; 87070; 87077; 87101; 87116; 87184; 87205; 87206; 88112; 88305; 88312; 89051; 94640

== ENCOUNTER → 2019-03-18 | Outpatient (CLI) | payer MEDICARE, OTHER ==
[~2019-03-18] MED LIST changes: +CLON-445 PO; +GABA-486 PO; +HOLD METFORMIN - RECEIVED CONTRAST 20 ML VIAL IV SCH; +HYDR-3820 PO; +IOHEXOL 350 MG/ML 100 ML (OMNIPAQUE 350) VIAL IV ONE; +LOSA50TA63 PO; +MELA10TA10 SL; +NS 100 ML (IVPB) BAG IV ONE; +SIMV20TA26 PO; -TRAM50TA2 PO; +TRM50T PO
--- NOTE | 2019-03-18 08:39 | Diagnostic Imaging Report ---
EXAMINATION: CT Chest, Abdomen and Pelvis with intravenous contrast. TECHNIQUE: Multiple contiguous axial images were obtained through the chest, abdomen and pelvis after the uneventful administration of intravenous contrast. All CT scans use one or more of the following dose optimizing techniques: automated exposure control, MA and/or KvP adjustment based on a patient size and exam type, or iterative reconstruction. HISTORY: Pulmonary nodule and abdominal aortic aneurysm. COMPARISON: 09/23/2018. FINDINGS: There is no edema or pneumonia. No pleural effusion. No pneumothorax. The 5 mm left lower lobe nodule is stable. Lungs are mildly emphysematous. Heart size is normal. No pericardial effusion. There has been coronary artery bypass grafting. There is a stable ascending aortic aneurysm measuring 4.5 cm. There is no axillary or supraclavicular lymphadenopathy. There is no mediastinal lymphadenopathy. The liver is normal without focal lesion. There is no biliary ductal dilation. Gallbladder is normal. Pancreas is normal. Spleen is normal. Adrenal glands are normal. There is cortical scarring in the left kidney. Simple cyst is seen in the right kidney. No suspicious renal lesions. There is no hydronephrosis. Urinary bladder is normal. There are no dilated loops of large or small bowel. No obstruction or inflammation. No free fluid or air. No abdominal or pelvic lymphadenopathy. There is a stable 3.5 cm abdominal aortic aneurysm with a large amount of ulcerated mural thrombus or plaque. There is [id number]-xx-wczfqa stenosis of the renal artery origins, left worse than right. There is moderate stenosis of the origin of the right common iliac artery. There are no suspicious osseus lesions. IMPRESSION: 1. Stable ascending aortic and abdominal aortic aneurysms. 2. Stable left lower lobe pulmonary nodule measuring 5 mm which is likely benign given its stability. 3. Vxeypucw-wx-[id number] bilateral renal artery stenosis, left greater than right. Dictated by: Dictated on workstation # [id number]
== END ==
LOC: RAD 07:12
PROVIDERS: ATTEND Nurse Practitioner
DX: I71.4 Abdominal aortic aneurysm, without rupture (principal); R91.1 Solitary pulmonary nodule; I70.1 Atherosclerosis of renal artery
CPT/HCPCS: 71260; 74177

== ENCOUNTER → 2019-07-03 | Outpatient (CLI) | payer MEDICARE, OTHER ==
[~2019-07-03] MED LIST changes: +ACHYD1T PO; -HOLD METFORMIN - RECEIVED CONTRAST 20 ML VIAL IV SCH; -HYDR-3820 PO; -IOHEXOL 350 MG/ML 100 ML (OMNIPAQUE 350) VIAL IV ONE; -NS 100 ML (IVPB) BAG IV ONE
--- NOTE | 2019-07-03 08:35 | Diagnostic Imaging Report ---
Indication: Right sciatica Pelvis 8:19 AM Pelvic ring is intact. Hips unremarkable. IMPRESSION: Unremarkable pelvis Dictated by: Dictated on workstation # [id number]
--- NOTE | 2019-07-03 08:36 | Diagnostic Imaging Report ---
Indication: Right sciatica AP lateral views of the sacrococcyx does not show any displaced fracture. IMPRESSION: Negative sacrum and coccyx Dictated by: Dictated on workstation # [id number]
--- NOTE | 2019-07-03 09:11 | Diagnostic Imaging Report ---
EXAMINATION: Lumbar spine at 821h. INDICATION: Right leg pain AP, lateral and spot lateral views were obtained. The lateral view shows the vertebral body heights and alignment to be generally within normal limits and similar to the prior CT chest, abdomen and pelvis exam of 03/18/2019. The intervertebral spaces are fairly well-maintained. There is no fracture or acute bony abnormality evident. There is no sign of a paraspinal mass. There is mild symmetrical scoliosis of the sacroiliac joints. IMPRESSION: There is no evidence for an acute bony abnormality. Dictated by: Dictated on workstation # [id number]
== END ==
LOC: RAD 07:42
PROVIDERS: ATTEND Nurse Practitioner
DX: M54.31 Sciatica, right side (principal)
CPT/HCPCS: 72100; 72170; 72220

== ENCOUNTER → 2019-08-19 | Outpatient (CLI) | payer MEDICARE, OTHER ==
--- NOTE | 2019-08-19 10:21 | Diagnostic Imaging Report ---
PROCEDURE: MRI lumbar spine. TECHNIQUE: Multiplanar, multisequence MRI of the lumbar spine was performed without contrast. INDICATION: Low back pain, twisting injury was sustained 3 months ago. The exam compared with lumbar MRI performed 11/15/2016 and correlated with more recent lumbar plain films taken 07/03/2019. Lumbar body statures are stable. There is some old Schmorl's node endplate invaginations of disc at multiple mid to lower lumbar endplates, chronic and nonedematous. The alignment stable and normal. The marrow signal intensity normal. No paravertebral mass, hemorrhage or fluid collection. The conus stable. The nerves of the cauda equina showed a normal dispersal pattern. There is partially visualized exophytic right renal cortical T2 hyperintense cystic-appearing lesions, stable where visualized. Ectasia of the infrarenal abdominal aorta just above its bifurcation measures a transverse diameter of 3 cm, unchanged. There is mild disc desiccation and mild disc bulge with osteophyte material anterior greater than posterior throughout the lumbar spine showing little, if any, interval change and resulting in no substantial canal stenosis. There were mild degrees of bi- foraminal narrowing at the L2-L3, L3-L4 and L4-L5 levels unchanged. No significant impingement upon the lateral recesses. No acute or chronic fracture. IMPRESSION: 1. No significant change in multilevel spondylosis. Mild foraminal narrowing. Infrarenal aortic ectasia and a partially visualized right renal cyst. 2. No high-grade stenosis or acute appearing abnormality. Dictated by: Dictated on workstation # [id number]
== END ==
LOC: RAD 08:14
PROVIDERS: ATTEND Orthopaedic Surgery
DX: M47.26 Other spondylosis with radiculopathy, lumbar region (principal); M48.061 Spinal stenosis, lumbar region without neurogenic claudication
CPT/HCPCS: 72148

== ENCOUNTER → 2019-11-17 | Outpatient (CLI) | payer MEDICARE, OTHER ==
--- NOTE | 2019-11-17 09:34 | Diagnostic Imaging Report ---
INDICATION: Back pain. Radiculopathy COMPARISON: None TECHNIQUE: Routine non-contrast enhanced multiplanar, multisequence MRI of the thoracic spine was obtained. FINDINGS: There is normal anatomic alignment of the thoracic spine. The visualized vertebral bodies demonstrate normal height and marrow signal. The disk heights are well maintained. There is mild multilevel intervertebral disc height loss, but no large disc bulge or focal protrusion is seen. The visualized spinal cord has a normal appearance. No large pre or paravertebral masses are seen. The axial images demonstrate no disk bulge, herniation, central canal nor foraminal stenosis. IMPRESSION: Negative MRI of the thoracic spine. Dictated by: Dictated on workstation # [id number]
--- NOTE | 2019-11-17 10:17 | Diagnostic Imaging Report ---
EXAMINATION: Thoracic spine at 9:32 AM. INDICATION: Back pain. TECHNIQUE: AP, lateral, and swimmers views were obtained. FINDINGS: The lateral view shows the vertebral body heights and alignment to be within normal limits and similar to the MRI thoracic spine exam performed earlier today in conjunction with this study. There is degenerative disc disease throughout the thoracic spine but there is no fracture or acute bony abnormality appreciated. There is no sign of a paraspinal mass. IMPRESSION: There is degenerative disc disease throughout the thoracic spine but there is no evidence for an acute bony abnormality. Dictated by: Dictated on workstation # [id number]
== END ==
LOC: RAD 08:16
PROVIDERS: ATTEND Registered Nurse
DX: M51.14 Intervertebral disc disorders with radiculopathy, thoracic region (principal)
CPT/HCPCS: 72072; 72146

== ENCOUNTER → 2019-11-17 | Outpatient (CLI) | payer MEDICARE, OTHER ==
[~2019-11-17] MED LIST changes: +HOLD METFORMIN - RECEIVED CONTRAST 20 ML VIAL IV SCH; +IOHEXOL 350 MG/ML 100 ML (OMNIPAQUE 350) VIAL IV ONE; +NS 100 ML (IVPB) BAG IV ONE
--- NOTE | 2019-11-17 09:54 | Diagnostic Imaging Report ---
EXAMINATION: CT Chest, Abdomen and Pelvis with intravenous contrast. TECHNIQUE: Multiple contiguous axial images were obtained through the chest, abdomen and pelvis after the uneventful administration of intravenous contrast. All CT scans use one or more of the following dose optimizing techniques: automated exposure control, MA and/or KvP adjustment based on a patient size and exam type, or iterative reconstruction. HISTORY: AORTIC ANEURYSM COMPARISON: 03/18/2019 FINDINGS: There is no edema or pneumonia. No pleural effusion. No pneumothorax. No suspicious nodules. Lungs are moderately emphysematous. There is no axillary or supraclavicular lymphadenopathy. There is no mediastinal lymphadenopathy. Heart size is normal. There are moderate coronary artery calcifications. No pericardial effusion. There has been coronary artery bypass grafting. The ascending aorta measures 4.5 cm, previously 4.4 cm. There is extensive plaquing in the descending aorta. There is ulcerated plaque in the abdominal aorta. The abdominal aorta measures 3.3 cm at its maximum, previously 3.3 cm. The iliofemoral arteries highly tortuous with extensive calcified plaque. There is a common origin of the celiac artery and superior mesenteric artery. The liver is normal without focal lesion. There is no biliary ductal dilation. Gallbladder is not seen. Pancreas is normal. Spleen is normal. Adrenal glands are normal. Cyst is present in the right kidney. No suspicious renal lesions. There is an area of cortical scarring in the left kidney. There is no hydronephrosis. Urinary bladder is normal. Visualized bowel is normal in caliber without obstruction or inflammation. No free fluid or air. No abdominal or pelvic lymphadenopathy. There are no suspicious osseous lesions. IMPRESSION: 1. Unchanged ascending aortic aneurysm measuring up to 4.4 cm. 2. Unchanged abdominal aortic aneurysm measuring up to 3.3 cm. Extensive plaquing is present within the descending thoracic aorta and abdominal aorta. 3. 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 Dictated by: Dictated on workstation # [id number]
== END ==
LOC: RAD 08:16
PROVIDERS: ATTEND Internal Medicine
DX: I71.4 Abdominal aortic aneurysm, without rupture (principal); I71.2 Thoracic aortic aneurysm, without rupture; I70.0 Atherosclerosis of aorta
CPT/HCPCS: 71260; 74177

== ENCOUNTER 2021-02-02 13:42 | Inpatient (IN) | payer MEDICARE, OTHER ==
[~2021-02-02] VITALS: Ht 180 cm; Wt 90.6 kg
[~2021-02-02 13:42] MED LIST changes: -HOLD METFORMIN - RECEIVED CONTRAST 20 ML VIAL IV SCH; -IOHEXOL 350 MG/ML 100 ML (OMNIPAQUE 350) VIAL IV ONE; +MELA10TA10 PO; -MELA10TA10 SL; -NS 100 ML (IVPB) BAG IV ONE
--- NOTE | 2021-02-02 13:52 | ED General ---
General Stated Complaint: HIGH HR,AFIB Source of Information: Patient Exam Limitations: No Limitations (ELIDIA MORIN APRN) History of Present Illness Date Seen by Provider: Feb 02, 2021 Time Seen by Provider: 13:50 Initial Comments 75-year-old gentleman patient of Dr. DENISE Russo and Dr. Butler from [facility] with history of A. fib, diabetes, hypertension, hyperlipidemia, coronary artery disease presents to ER with reports that he has had "a cold" for 3 or 4 days. His reports that its been over a week. He forgot to take his Eliquis today but had it yesterday and has not missed any other doses. He attributes this missed eliquis to his tachycardia. He saw Dr. Russo's nurse practitioner today for the symptoms and was found to be tachycardic and referred to ER. He has known atrial fibrillation on Eliquis and carvedilol 25 mg po bid (also missed this morning dose of carvedilol). Timing/Duration: 2-3 Days Severity: Moderate Associated Systoms: No Chest Pain, No Cough, No Fever/Chills, No Headaches; Malaise; No Nausea/Vomiting; Weakness (ELIDIA MORIN APRN) Allergies and Home Medications Allergies Coded Allergies: No Known Drug Allergies (Verified , 10/02/18) Patient Home Medication List Home Medication List Reviewed: Yes (ELIDIA MORIN APRN) Aspirin (Aspirin) 81 Mg Tab.chew, 81 MG PO DAILY, (Reported) Entered as Reported by: GÓMEZ KRISHNAMURTHY on 12/27/16 1212 Clonidine HCl (Clonidine HCl ER) 0.1 Mg Tab.er.12h, 0.1 MG PO BID PRN for ELEVATED BP SYSTOLIC OVER 180, (Reported) Entered as Reported by: JOYCELYN WARE on 10/02/18 1049 Empagliflozin/Metformin HCl (Synjardy 5-500 mg Tablet) 1 Each Tablet, 1 EACH PO BID, (Reported) Entered as Reported by: GÓMEZ KRISHNAMURTHY on 12/27/16 1212 Ezetimibe (Ezetimibe) 10 Mg Tablet, 10 MG PO DAILY, (Reported) Entered as Reported by: GÓMEZ KRISHNAMURTHY on 12/27/16 1212 Gabapentin (Gabapentin) 100 Mg Capsule, 100 MG PO TID, (Reported) Entered as Reported by: JOYCELYN WARE on 10/02/18 0812 Hydrocodone Bit/Acetaminophen (HYDROcodone/APAP 10/325 TABLET) 1 Each Tablet, 1 TAB PO Q8H PRN for PAIN-MODERATE, (Reported) Entered as Reported by: JOYCELYN WARE on 10/02/18 0814 Losartan Potassium (Losartan Potassium) 50 Mg Tablet, 50 MG PO DAILY, (Reported) Entered as Reported by: JOYCELYN WARE on 10/02/18 1049 Melatonin (Melatonin) 10 Mg Tab.subl, 10 MG SL DAILY, (Reported) Entered as Reported by: JOYCELYN WARE on 10/02/18 0815 Simvastatin (Simvastatin) 20 Mg Tablet, 20 MG PO DAILY, (Reported) Entered as Reported by: GÓMEZ KRISHNAMURTHY on 12/27/16 1212 Review of Systems Review of Systems Constitutional: see HPI; No chills, No fever; malaise, weakness EENTM: see HPI, nose congestion Respiratory: see HPI; No cough, No short of breath Cardiovascular: see HPI; No chest pain; palpitations Genitourinary: no symptoms reported Musculoskeletal: no symptoms reported Skin: no symptoms reported Psychiatric/Neurological: No Symptoms Reported Hematologic/Lymphatic: No Symptoms Reported Immunological/Allergic: no symptoms reported (ELIDIA MORIN APRN) Past Btrtlmj-Mhfdtw-Opbwos Hx Seasonal Allergies Seasonal Allergies: No (ELIDIA MORIN APRN) Past Medical History Surgeries: Yes (RIGHT KNEE SX, TRIPLE CABG 2000, UMBILICAL HERNIA ) Gallbladder Respiratory: No Cardiac: Yes (TRIPLE BYPASS 2000) Coronary Artery Disease, High Cholesterol Neurological: No Reproductive Disorders: No Sexually Transmitted Disease: No HIV/AIDS: No Kidney Stones Gastrointestinal: No Gall Bladder Disease Musculoskeletal: Yes (TORN MENISCUS) Arthritis Endocrine: Yes Diabetes, Insulin dep Loss of Vision: Bilateral Hearing Impairment: Denies Cancer: No Psychosocial: No Integumentary: No Blood Disorders: No Adverse Reaction/Blood Tranf: No (ELIDIA MORIN APRN) Physical Exam Vital Signs Vital Signs - First Documented 02/02/21 13:45 Temp 35.9 Pulse 115 Resp 20 B/P (MAP) 199/126 (150) Pulse Ox 95 O2 Delivery Room Air (HALEY GILMORE MD) Vital Signs Capillary Refill : (ELIDIA MORIN APRN) Height, Weight, BMI Height: 5'11.00" Weight: 178lbs. 9.0oz. 80.321874gs; 24.9 BMI Method: General Appearance: No Apparent Distress, WD/WN, Other (ambulatory to room 6 witout assistive device. HR 120-130 irregular a-fib. BP 180s/110s. ) Neck: Full Range of Motion, Normal Inspection Respiratory: No Accessory Muscle Use Cardiovascular: Normal Peripheral Pulses, Irregularly Irregular, Tachycardia Gastrointestinal: Normal Bowel Sounds, Non Tender, Soft Extremity: Normal Capillary Refill, Normal Inspection Neurologic/Psychiatric: Alert, Oriented x3 Skin: Normal Color, Warm/Dry (ELIDIA MORIN APRN) Progress/Results/Core Measures Suspected Sepsis SIRS Temperature: Pulse: Respiratory Rate: Laboratory Tests 02/02/21 13:50: White Blood Count 15.1H Blood Pressure / Mean: Laboratory Tests 02/02/21 13:50: Creatinine 1.87H, INR Comment 1.3, Platelet Count 165, Total Bilirubin 1.2H (ELIDIA MORIN APRN) Results/Orders Lab Results Laboratory Tests Test 02/02/21 13:50 02/02/21 13:52 02/02/21 14:22 Range/Units White Blood Count 15.1 H 4.3-11.0 10^3/uL Red Blood Count 5.32 4.30-5.52 10^6/uL Hemoglobin 16.7 13.3-17.7 g/dL Hematocrit 50 40-54 % Mean Corpuscular Volume 93 80-99 fL Mean Corpuscular Hemoglobin 31 25-34 pg Mean Corpuscular Hemoglobin Concent 34 32-36 g/dL Red Cell Distribution Width 13.3 10.0-14.5 % Platelet Count 165 130-400 10^3/uL Mean Platelet Volume 10.2 9.0-12.2 fL Immature Granulocyte % (Auto) 1 % Neutrophils (%) (Auto) 78 H 42-75 % Lymphocytes (%) (Auto) 12 12-44 % Monocytes (%) (Auto) 9 0-12 % Eosinophils (%) (Auto) 0 0-10 % Basophils (%) (Auto) 1 0-10 % Neutrophils # (Auto) 11.7 H 1.8-7.8 10^3/uL Lymphocytes # (Auto) 1.9 1.0-4.0 10^3/uL Monocytes # (Auto) 1.3 H 0.0-1.0 10^3/uL Eosinophils # (Auto) 0.0 0.0-0.3 10^3/uL Basophils # (Auto) 0.1 0.0-0.1 10^3/uL Immature Granulocyte # (Auto) 0.1 0.0-0.1 10^3/uL Neutrophils % (Manual) 73 % Lymphocytes % (Manual) 14 % Monocytes % (Manual) 6 % Eosinophils % (Manual) 0 % Basophils % (Manual) 0 % Band Neutrophils 7 % Blood Morphology Comment NORMAL Prothrombin Time 16.4 H 12.2-14.7 SEC INR Comment 1.3 0.8-1.4 Activated Partial Thromboplast Time 48 H 24-35 SEC Sodium Level 130 L 135-145 MMOL/L Potassium Level 6.2 H 3.6-5.0 MMOL/L Chloride Level 99 98-107 MMOL/L Carbon Dioxide Level 20 L 21-32 MMOL/L Anion Gap 11 5-14 MMOL/L Blood Urea Nitrogen 31 H 7-18 MG/DL Creatinine 1.87 H 0.60-1.30 MG/DL Estimat Glomerular Filtration Rate 35 BUN/Creatinine Ratio 17 Glucose Level 324 H 70-105 MG/DL Calcium Level 9.7 8.5-10.1 MG/DL Corrected Calcium 9.9 8.5-10.1 MG/DL Magnesium Level 2.3 1.6-2.4 MG/DL Total Bilirubin 1.2 H 0.1-1.0 MG/DL Aspartate Amino Transf (AST/SGOT) 38 H 5-34 U/L Alanine Aminotransferase (ALT/SGPT) 18 0-55 U/L Alkaline Phosphatase 83 40-136 U/L Myoglobin 122.2 H 10.0-92.0 NG/ML Troponin I < 0.028 <0.028 NG/ML B-Type Natriuretic Peptide 146.1 H <100.0 PG/ML Total Protein 9.5 H 6.4-8.2 GM/DL Albumin 3.8 3.2-4.5 GM/DL Procalcitonin 0.26 H <0.10 NG/ML SARS-CoV-2 RNA (RT-PCR) Not Detected Not Detecte Urine Color YELLOW Urine Clarity CLEAR Urine pH 6.0 5-9 Urine Specific [place] 1.020 1.016-1.022 Urine Protein 1+ H NEGATIVE Urine Glucose (UA) 2+ H NEGATIVE Urine Ketones 1+ H NEGATIVE Urine Nitrite NEGATIVE NEGATIVE Urine Bilirubin NEGATIVE NEGATIVE Urine Urobilinogen 1.0 < = 1.0 MG/DL Urine Leukocyte Esterase NEGATIVE NEGATIVE Urine RBC (Auto) 1+ H NEGATIVE Urine RBC RARE /HPF Urine WBC NONE /HPF Urine Squamous Epithelial Cells 0-2 /HPF Urine Crystals NONE /LPF Urine Bacteria NEGATIVE /HPF Urine Casts NONE /LPF Urine Mucus NEGATIVE /LPF Urine Culture Indicated NO (HALEY GILMORE MD) Medications Given in ED Current Medications Medications Dose Ordered Sig/Rogelio Route Start Time Stop Time Status Last Admin Dose Admin Apixaban 5 mg ONCE ONCE PO 02/02/21 14:00 02/02/21 14:01 WV 02/02/21 14:04 5 MG Carvedilol 25 mg ONCE ONCE PO 02/02/21 14:00 02/02/21 14:01 WV 02/02/21 14:27 25 MG Dextrose 50 ml ONCE ONCE IV 02/02/21 14:30 02/02/21 14:31 WV 02/02/21 14:48 50 ML Diltiazem HCl 10 mg ONCE ONCE IVP 02/02/21 14:00 02/02/21 14:01 DC 02/02/21 14:04 10 MG Insulin Human Regular 10 unit ONCE ONCE IV 02/02/21 14:30 02/02/21 14:31 WV 02/02/21 14:49 10 UNIT Sodium Polystyrene Sulfonate 30 gm ONCE ONCE PO 02/02/21 14:45 02/02/21 14:46 WV 02/02/21 14:53 30 GM (HALEY GILMORE MD) Vital Signs/I&O 02/02/21 13:45 Temp 35.9 Pulse 115 Resp 20 B/P (MAP) 199/126 (150) Pulse Ox 95 O2 Delivery Room Air (HALEY GILMORE MD) Vital Signs/I&O Capillary Refill : (ELIDIA MORIN APRN) Departure Communication (Admissions) Family Conversation NAME: ZAK MARQUEZ [facility] REC#: [id number] PT STATUS: REG ER : 1945 PHYSICIAN: ELIDIA MORIN APRN ADMIT DATE: 02/02/21/ER Draft Date of Exam:02/02/21 CHEST 1 VIEW, AP/PA ONLY INDICATION: Elevated heart rate and atrial fibrillation. TIME OF EXAM: 3:11 PM CORRELATION is made with prior chest from 10/02/2018. Changes of median sternotomy and CABG are noted. There is an airspace infiltrate that has developed in the right base. Otherwise, the lungs are clear. There is no effusion or pneumothorax. IMPRESSION: Right basilar infiltrate or atelectasis. Dictated on workstation # [id number] Dict: 02/02/21 1510 Trans: 02/02/21 1515 [facility] [id number] Interpreted by: TISH KANG MD Electronically signed by: 1437-heart rate was 120-130 A. fib on arrival blood pressure 199/125. Currently after 10 mg of IV Cardizem and his morning dose of 25 mg of carvedilol p.o. his heart rate is down to 113 sinus. His oxygen 93% room air. Blood pressure down to 160/90. His potassium is a little high, he has some renal insufficiency likely chronic given his hypertension and diabetes but I do not have any priors to compare to except for 5 years ago. He is received his first liter of LR. Will give additional bag of IV fluids, normal saline, 10 units of regular insulin IV, 25 g of dextrose IV and 60 g of Kayexalate to reduce potassium. Discussed with him that given his lab abnormalities, symptoms and vital signs I would prefer to watch him in the hospital overnight. He is agreeable with this. He does state that he is feeling quite a bit better now. 1511-chest x-ray shows a right lower lobe pneumonia. He has no underlying lung disease or structural lung disease. No recent antibiotic use. I will treat community-acquired pneumonia with Rocephin and doxycycline. Avoiding Zithromax due to the QTC of 504 ms. (ELIDIA MORIN APRN) Impression Primary Impression: RLL pneumonia Additional Impressions: Hyperkalemia Dehydration Atrial fibrillation with RVR Disposition: ADMITTED INPATIENT Condition: Stable Admissions Decision to Admit Reason: Admit from ER (General) Decision to Admit/Date: Feb 02, 2021 Time/Decision to Admit Time: 15:10 (ELIDIA MORIN APRN) Departure-Patient Inst. Referrals: DANIEL RUSSO MD (PCP/Family) Primary Care Physician ATTENDING PHYSICIAN NOTE: I was physically present as attending physician in the emergency department during the care of this patient, but I was not directly involved in the decision making or delivery of care for this patient. (HALEY GILMORE MD) ELIDIA MORIN APRN Feb 02, 2021 13:52 HALEY GILMORE MD Feb 02, 2021 19:24
[2021-02-02 13:58] LABS: BASOPHILS # (AUTO) 0.1 10^3/uL (0.0-0.1); BASOPHILS % (AUTO) 1 % (0-10); EOSINOPHILS % (AUTO) 0 % (0-10); HEMATOCRIT 50 % (40-54); HEMOGLOBIN 16.7 g/dL (13.3-17.7); LYMPHOCYTES # (AUTO) 1.9 10^3/uL (1.0-4.0); LYMPHOCYTES % (AUTO) 12 % (12-44); MEAN CORPUSCULAR HEMOGLOBIN 31 pg (25-34); MEAN CORPUSCULAR HGB CONC 34 g/dL (32-36); MEAN CORPUSCULAR VOLUME 93 fL (80-99); MEAN PLATELET VOLUME 10.2 fL (9.0-12.2); MONOCYTES # (AUTO) 1.3 10^3/uL (0.0-1.0); MONOCYTES % (AUTO) 9 % (0-12); NEUTROPHILS # (AUTO) 11.7 10^3/uL (1.8-7.8); NEUTROPHILS % (AUTO) 78 % (42-75); PLATELET COUNT 165 10^3/uL (130-400); WHITE BLOOD COUNT 15.1 10^3/uL (4.3-11.0)
[2021-02-02] MEDS ORDERED: APIXABAN 5 MG (ELIQUIS) TABLET PO ONE (14:00)
[2021-02-02] MEDS ORDERED: LACTATED RINGERS 1,000 ML IV SCH (14:00)
[2021-02-02 14:14] LABS: INR 1.3 (0.8-1.4); PROTHROMBIN TIME PATIENT 16.4 SEC (12.2-14.7)
[2021-02-02 14:17] LABS: ALBUMIN 3.8 GM/DL (3.2-4.5); POTASSIUM 6.2 MMOL/L (3.6-5.0)
[2021-02-02 14:18] LABS: CALCIUM 9.7 MG/DL (8.5-10.1)
[2021-02-02 14:19] LABS: TOTAL PROTEIN 9.5 GM/DL (6.4-8.2)
[2021-02-02 14:21] LABS: BILIRUBIN,TOTAL 1.2 MG/DL (0.1-1.0)
[2021-02-02 14:23] LABS: BAND NEUTROPHILS 7 %; BASOPHILS % (MANUAL) 0 %; CREATININE SERUM 1.87 MG/DL (0.60-1.30); EOSINOPHILS % (MANUAL) 0 %; LYMPHOCYTES % (MANUAL) 14 %; MONOCYTES % (MANUAL) 6 %; NEUTROPHILS % (MANUAL) 73 %; RBC MORPH NORMAL
[2021-02-02 14:25] LABS: MAGNESIUM 2.3 MG/DL (1.6-2.4)
[2021-02-02] MEDS ORDERED: DEXTROSE 50% 50 ML (IMS) SYR IV ONE (14:30)
[2021-02-02] MEDS ORDERED: NS IV 1000 ML 1,000 ML IV SCH (14:30)
[2021-02-02] MEDS ORDERED: inSUlin (REGULAR) HUMAN 1 UNIT/0.01 ML (CHARGE PER UNIT) IV ONE (14:30)
[2021-02-02] MEDS ORDERED: SOD POLYSTYRENE 30 GM/120 ML (KAYEXALATE) BULK BOTTLE PO ONE (14:30)
[2021-02-02] MEDS ORDERED: SOD POLYSTERENE 15 GM/60 ML (KAYEXALATE) UNIT DOSE PO ONE (14:45)
[2021-02-02 15:01] LABS: BILIRUBIN,URINE NEGATIVE (NEGATIVE); CLARITY,URINE CLEAR; COLOR,URINE YELLOW; GLUCOSE, URINE (UA) 2+ (NEGATIVE); KETONES,URINE 1+ (NEGATIVE); LEUKOCYTE ESTERASE ,URINE NEGATIVE (NEGATIVE); NITRITE,URINE NEGATIVE (NEGATIVE); PROTEIN,URINE 1+ (NEGATIVE)
[2021-02-02] MEDS ORDERED: cefTRIAXone 1 GM PRE-MIX 50 ML IV ONE (15:15)
--- NOTE | 2021-02-02 15:15 | Diagnostic Imaging Report ---
INDICATION: Elevated heart rate and atrial fibrillation. TIME OF EXAM: 3:11 PM CORRELATION is made with prior chest from 10/02/2018. Changes of median sternotomy and CABG are noted. There is an airspace infiltrate that has developed in the right base. Otherwise, the lungs are clear. There is no effusion or pneumothorax. IMPRESSION: Right basilar infiltrate or atelectasis. Dictated by: Dictated on workstation # [id number]
[2021-02-02 15:17] LABS: BACTERIA,URINE NEGATIVE /HPF; RBC,URINE RARE /HPF; SQUAMOUS EPITHELIAL CELL,UR 0-2 /HPF
--- NOTE | 2021-02-02 15:34 | Consultation-Cardiology ---
HPI-Cardiology Cardiology Consultation: Date of Consultation 02/02/21 Time Seen by a Provider: 15:30 Date of Admission 02-02-21 Attending Physician Admitting Physician Karl Thorne MD Consulting Physician Janeth Logan MD HPI: Chief Complaint: A-fib Mr. Marquez is a 75 yr old male being admitted to [facility] from the ED. His spouse is at the bedside. He reports for approx the last week he as been feeling unwell. He reports gen weakness, fatigue, poor appetite, fever, chills and SOB. He denies any c/o palpitations, syncope or near syncope. No c/o LE swelling. He states he did not take his medications today. He reports d/t continued weakness he came to the ED. He states he is feeling much better at the time of this exam. 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 Ren at [facility]. He saw him last in October. Review of Systems-Cardiology Review of Systems Constitutional: chills, fever, malaise Eyes: No vision change Ears/Nose/Throat: No epistaxis, No recent hearing loss Respiratory: As described under HPI Cardiovascular: As described under HPI Gastrointestinal: As described under HPI, nausea Genitourinary: No dysuria, No hematuria Musculoskeletal: no symptoms reported Skin: No rash on exposed areas, No ulcerations on exposed areas Psychiatric/Neurological: No anxiety, No depression, No seizure, No focal weakness, No syncope Hematologic: No bleeding abnormalities GJU-Ozyhvh-Oizfni Hx Patient Social History Smoking Status: Current Everyday Smoker Have you traveled recently?: No Alcohol Use?: No Pt feels they are or have been: No Tobacco type used: Cigarettes Immunizations Up To Date Date of Pneumonia Vaccine: Feb 18, 2009 Past Medical History PMH As described under Assessment. Family Medical History Family Medical History: No family h/o CAD or SCD. Allergies and Home Medications Allergies Coded Allergies: No Known Drug Allergies (Verified , 10/02/18) Patient Home Medication List Apixaban (Eliquis) 5 Mg Tablet, 5 MG PO BID WITH MEALS, (Reported) Entered as Reported by: MICHELINE BERG on 02/03/21 1000 Last Action: Reviewed Aspirin (Aspirin EC) 81 Mg Tablet., 81 MG PO HS, (Reported) Entered as Reported by: MICHELINE BERG on 02/03/21 1000 Last Action: Reviewed Carvedilol (Carvedilol) 25 Mg Tablet, 25 MG PO BID WITH MEALS, (Reported) Entered as Reported by: MICHELINE BERG on 02/03/21 1000 Last Action: Reviewed Dextromethorphan HBr/Chlor-Mal (Coricidin Hbp Cough & Cold Tab) 1 Each Tablet, 1 EACH PO Q6H PRN for COUGH, (Reported) Entered as Reported by: MICHELINE BERG on 02/03/21999 Last Action: Reviewed Dulaglutide (Trulicity) 1.5 Mg/0.5 Ml Pen.injctr, 1.5 MG SQ TUE, (Reported) Entered as Reported by: MICHELINE BERG on 02/03/21999 Last Action: Reviewed Ezetimibe (Ezetimibe) 10 Mg Tablet, 10 MG PO HS, (Reported) Entered as Reported by: GÓMEZ KRISHNAMURTHY on 12/27/16 1212 Last Action: Reviewed Gabapentin (Neurontin) 300 Mg Capsule, 300 MG PO TID, (Reported) Entered as Reported by: MICHELINE BERG on 02/03/21999 Last Action: Reviewed Hydrocodone/Acetaminophen (Hydrocodone-Acetamin 10-325 mg) 1 Each Tablet, 1 EA PO TID PRN for PAIN-MODERATE (5-7), (Reported) Entered as Reported by: MICHELINE BERG on 02/03/21999 Last Action: Reviewed Losartan Potassium (Losartan Potassium) 100 Mg Tablet, 100 MG PO DAILY, (Reported) Entered as Reported by: MICHELINE BERG on 02/03/21999 Last Action: Reviewed Melatonin (Melatonin) 10 Mg Tab.subl, 10 MG PO HS, (Reported) Entered as Reported by: JOYCELYN WARE on 10/02/18 0815 Last Action: Reviewed Simvastatin (Simvastatin) 20 Mg Tablet, 20 MG PO HS, (Reported) Entered as Reported by: GÓMEZ KRISHNAMURTHY on 12/27/16 1212 Last Action: Reviewed Sitagliptin Phosphate (Januvia) 100 Mg Tablet, 100 MG PO DAILY, (Reported) Entered as Reported by: MICHELINE BERG on 02/03/21999 Last Action: Reviewed Discontinued Medications Clonidine HCl (Clonidine HCl ER) 0.1 Mg Tab.er.12h, 0.1 MG PO BID PRN for E LEVATED BP SYSTOLIC OVER 180, (Reported) Discontinued Reason: No Longer Taking Entered as Reported by: JOYCELYN WARE on 10/02/18 1049 Last Action: Discontinued Empagliflozin/Metformin HCl (Synjardy 5-500 mg Tablet) 1 Each Tablet, 1 EACH PO BID, (Reported) Discontinued Reason: No Longer Taking Entered as Reported by: GÓMEZ KRISHNAMURTHY on 12/27/16 1212 Last Action: Discontinued Gabapentin (Gabapentin) 100 Mg Capsule, 100 MG PO TID, (Reported) Discontinued Reason: No Longer Taking Entered as Reported by: JOYCELYN WARE on 10/02/18 0812 Last Action: Discontinued Hydrocodone Bit/Acetaminophen (HYDROcodone/APAP 10/325 TABLET) 1 Each Tablet, 1 TAB PO Q8H PRN for PAIN-MODERATE, (Reported) Discontinued Reason: No Longer Taking Entered as Reported by: JOYCELYN WARE on 10/02/18 0814 Last Action: Discontinued Losartan Potassium (Losartan Potassium) 50 Mg Tablet, 50 MG PO DAILY, (Reported) Discontinued Reason: No Longer Taking Entered as Reported by: JOYCELYN WARE on 10/02/18 1049 Last Action: Discontinued Physical Exam-Cardiology Physical Exam Vital Signs/I&O 02/02/21 02/02/21 02/03/21 02/03/21 22:22 23:43 01:00 01:03 Temp 36.7 35.9 Pulse 91 92 115 Resp 23 B/P (MAP) 147/92 Pulse Ox 96 93 95 O2 Delivery Room Air Room Air FiO2 21 02/03/21 02/03/21 02/03/21 02/03/21 04:14 07:00 07:10 08:16 Temp 36.2 35.6 Pulse 106 90 106 Resp 22 17 B/P (MAP) 151/99 134/79 Pulse Ox 97 96 92 O2 Delivery Room Air Room Air Room Air 02/03/21 00:00 Intake Total 1400 ml Balance 1400 ml Capillary Refill : Less Than 3 Seconds Constitutional: AAO x 3, well-developed, well-nourished HEENT: PERRL, hearing is well preserved, oral hygience is good Neck: No carotid bruit; carotid pulses are 2 + bilaterally Respiratory: No accessory muscle use, No respiratory distress; chest expansion is symmetric, chest is bilaterally symmetric, rhonchi (scattered insp/exp), other (coarse breath sounds) Cardiovascular: irregularly irregular, tachycardia, systolic murmur Gastrointestinal: No tender; soft, round, audible bowel sounds Extremities: no lower extremity edema bilateral Neurologic/Psychiatric: grossly intact (moves all extremities) Skin: No rash on exposed areas, No ulcerations on exposed areas Data Review Labs Laboratory Tests 02/02/21 13:50: White Blood Count 15.1H, Red Blood Count 5.32, Hemoglobin 16.7, Hematocrit 50, Mean Corpuscular Volume 93, Mean Corpuscular Hemoglobin 31, Mean Corpuscular Hemoglobin Concent 34, Red Cell Distribution Width 13.3, Platelet Count 165, Mean Platelet Volume 10.2, Immature Granulocyte % (Auto) 1, Neutrophils (%) (Auto) 78H, Lymphocytes (%) (Auto) 12, Monocytes (%) (Auto) 9, Eosinophils (%) (Auto) 0, Basophils (%) (Auto) 1, Neutrophils # (Auto) 11.7H, Lymphocytes # (Auto) 1.9, Monocytes # (Auto) 1.3H, Eosinophils # (Auto) 0.0, Basophils # (Auto) 0.1, Immature Granulocyte # (Auto) 0.1, Neutrophils % (Manual) 73, Lymphocytes % (Manual) 14, Monocytes % (Manual) 6, Eosinophils % (Manual) 0, Basophils % (Manual) 0, Band Neutrophils 7, Blood Morphology Comment NORMAL, Prothrombin Time 16.4H, INR Comment 1.3, Activated Partial Thromboplast Time 48H , Sodium Level 130L, Potassium Level 6.2H, Chloride Level 99, Carbon Dioxide Level 20L, Anion Gap 11, Blood Urea Nitrogen 31H, Creatinine 1.87H, Estimat Glomerular Filtration Rate 35, BUN/Creatinine Ratio 17, Glucose Level 324H, Calcium Level 9.7, Corrected Calcium 9.9, Magnesium Level 2.3, Total Bilirubin 1.2H, Aspartate Amino Transf (AST/SGOT) 38H, Alanine Aminotransferase (ALT/SGPT) 18, Alkaline Phosphatase 83, Myoglobin 122.2H, Troponin I < 0.028, B-Type Natriuretic Peptide 146.1H, Total Protein 9.5H, Albumin 3.8, Procalcitonin 0.26H 02/02/21 13:52: SARS-CoV-2 RNA (RT-PCR) Not Detected 02/02/21 14:22: Urine Color YELLOW, Urine Clarity CLEAR, Urine pH 6.0, Urine Specific [place] 1.020, Urine Protein 1+H, Urine Glucose (UA) 2+H, Urine Ketones 1+H, Urine Nitrite NEGATIVE, Urine Bilirubin NEGATIVE, Urine Urobilinogen 1.0, Urine Leukocyte Esterase NEGATIVE, Urine RBC (Auto) 1+H, Urine RBC RARE, Urine WBC NONE, Urine Squamous Epithelial Cells 0-2, Urine Crystals NONE, Urine Bacteria NEGATIVE, Urine Casts NONE, Urine Mucus NEGATIVE, Urine Culture Indicated NO 02/02/21 15:30: Lactic Acid Level 1.42 02/02/21 18:42: Sodium Level 136, Potassium Level 4.3, Chloride Level 102, Carbon Dioxide Level 22, Anion Gap 12, Blood Urea Nitrogen 26H, Creatinine 1.56H, Estimat Glomerular Filtration Rate 44, BUN/Creatinine Ratio 17, Glucose Level 286H, Calcium Level 9.2 02/03/21 05:05: Sodium Level 139, Potassium Level 4.0, Chloride Level 107, Carbon Dioxide Level 19L, Anion Gap 13, Blood Urea Nitrogen 21H, Creatinine 1.16, Estimat Glomerular Filtration Rate 61, BUN/Creatinine Ratio 18, Glucose Level 202H, Calcium Level 8.8, White Blood Count 12.6H, Red Blood Count 4.71, Hemoglobin 14.6, Hematocrit 43, Mean Corpuscular Volume 92, Mean Corpuscular Hemoglobin 31, Mean Corpuscular Hemoglobin Concent 34, Red Cell Distribution Width 13.2, Platelet Count 150, Mean Platelet Volume 10.2, Immature Granulocyte % (Auto) 1, Neutrophils (%) ( Auto) 76H, Lymphocytes (%) (Auto) 13, Monocytes (%) (Auto) 10, Eosinophils (%) (Auto) 0, Basophils (%) (Auto) 1, Neutrophils # (Auto) 9.5H, Lymphocytes # (Auto) 1.7, Monocytes # (Auto) 1.2H, Eosinophils # (Auto) 0.0, Basophils # (Auto) 0.1, Immature Granulocyte # (Auto) 0.1, Corrected Calcium 9.4, Magnesium Level 1.9, Total Bilirubin 1.0, Aspartate Amino Transf (AST/SGOT) 16, Alanine Aminotransferase (ALT/SGPT) 17, Alkaline Phosphatase 71, Total Protein 7.0, Albumin 3.3, Triglycerides Level 88, Cholesterol Level 80, LDL Cholesterol Direct 41, VLDL Cholesterol 18, HDL Cholesterol 20L Radiology NAME: ZAK MARQUEZ [facility] REC#: [id number] PT STATUS: REG ER : 1945 PHYSICIAN: ELIDIA MORIN APRN ADMIT DATE: 02/02/21/ER Draft Date of Exam:02/02/21 CHEST 1 VIEW, AP/PA ONLY INDICATION: Elevated heart rate and atrial fibrillation. TIME OF EXAM: 3:11 PM CORRELATION is made with prior chest from 10/02/2018. Changes of median sternotomy and CABG are noted. There is an airspace infiltrate that has developed in the right base. Otherwise, the lungs are clear. There is no effusion or pneumothorax. IMPRESSION: Right basilar infiltrate or atelectasis. Dictated on workstation # [id number] Dict: 02/02/21 1510 Trans: 02/02/21 1515 [facility] [id number] Interpreted by: TISH KANG MD Electronically signed by: ECG Impression ECG Comment Atrial flutter with RVR A/P-Cardiology Assessment/Admission Diagnosis A-flutter with RVR - reports chronic a-flutter - OAC with Eliquis - follows with Dr. Ren RLL pneumonia - management per medical services Acute renal insufficiency with electrolyte abnormalities - likely secondary to intravascular vol depletion d/t poor intake CAD - reports h/o 3 vessel CABG [place] [address] Whitman at [facility] in [place], [place] DM 2 - hyperglycemic Tobaccoism - 1 PPD Probable COPD Discussion and Recomendations A-flutter with RVR - resume home dose of Coreg - add Cardizem CD for rate control Continue Eliquis 5mg BID - home medication Echocardiogram Request records from [facility] Continue ASA 81mg daily d/t CAD Management of pneumonia is per medical services Hyperkalemia - kayexalate already given Monitor electrolytes closely - treat as indicated Further recs will be based on his hospital course We would like to thank medical services for this consult SRI KELLY Feb 02, 2021 15:34
--- NOTE | 2021-02-02 16:06 | History & Physical-Hospitalist ---
FREDY CALLAWAY MED STUDENT 02/02/21 1606: History of Present Illness HPI/Chief Complaint CC- Chest Pain/Afib Mr Marquez is a 75yo smoker w/ hx of HTN, DM2, Afib, HLD, and 3x Bypass, CAD presented to ER earlier today from Dr. Thorne's office after being instructed to report to the ER. He states that for about a week now he has felt like he had a cold. Describes being dehydrated, clammy, and overall not feeling well. He states today his heart rate and blood pressure where high as well as his sugars. He states that this gradually came on and progressively got worse until today when he was told to come in. He did state that he did not take his eliquis his morning dose of carvedilol. He did get some relief with some cough and congestion medication. Nothing specifically made him feel worse over this time that he can think of. He complains of fever, chills, SOB, cough. He denies Headache, N/V, CP, palpitations, ABD pain, Bowel or bladder changes, swelling or pain in his legs or feet. He states he has never been hospitalized for anything like this in the past. He is a 60 yr smoker, does not drink alcohol or use elicit drugs. He states that there is no family history of disease he can think of including, caridac, respiratory, metabolic, and cancers. He has had heart surgery and 3 bypasses, surgery of his knees, and a hernia repair. He states he has a medical history of HTN, diabetes, and afib. Source: patient Exam Limitations: no limitations Date Seen 02/02/21 Time Seen by a Provider: 15:50 Attending Physician Judie Gold DO PCP Karl Thorne MD Referring Physician Date of Admission Feb 02, 2021 at 15:14 Home Medications & Allergies Home Medications Reviewed patient Home Medication Reconciliation performed by pharmacy medication reconciliations photonics engineering technician and/or nursing. Patients Allergies have been reviewed. Allergies Allergies Coded Allergies No Known Drug Allergies (Verified10/02/18) Past Malzpqj-Hmkuin-Tiupmc Hx Patient Social History Marrital Status: Tobacco Use?: Yes Tobacco type used: Cigarettes Smoking Status: Current Everyday Smoker Substance use?: No Alcohol Use?: No Pt feels they are or have been: No Immunizations Up To Date First/Initial COVID19 Vaccinat: 2020 Second COVID19 Vaccination Brandon: 2020 Tetanus Booster (TDap): More Than 5 Years Date of Pneumonia Vaccine: Feb 18, 2009 Seasonal Allergies Seasonal Allergies: No Current Status Communicates: Verbally Primary Language: Citizen [place] Preferred Spoken Language: Citizen [place] Sensory deficits: Vision impairment Implanted or Applied Medical D: Heart mechanical device Past Medical History Surgeries: Gallbladder Coronary Artery Disease, High Cholesterol Sexually Transmitted Disease: No HIV/AIDS: No Kidney Stones Gall Bladder Disease Arthritis Diabetes, Insulin dep Loss of Vision: Bilateral Hearing Impairment: Denies Blood Disorders: No Adverse Reaction/Blood Tranf: No Review of Systems Constitutional: chills; No diaphoresis, No dizziness; fever EENTM: No hearing loss, No blurred vision Respiratory: cough; No dyspnea on exertion, No hemoptysis, No phlegm; short of breath; No wheezing Cardiovascular: No chest pain; edema, Hx of Intervention; No palpitations, No syncope Gastrointestinal: No abdominal pain, No constipation, No diarrhea, No hematemesis, No nausea, No vomiting Genitourinary: No dysuria, No frequency, No hematuria Musculoskeletal: other (Denies leg/foot pain) Skin: No lesions, No rash Psychiatric/Neurological: Denies Headache Physical Exam Physical Exam Vital Signs Vital Signs - First Documented 02/02/21 13:45 Temp 35.9 Pulse 115 Resp 20 B/P (MAP) 199/126 (150) Pulse Ox 95 O2 Delivery Room Air Capillary Refill : Less Than 3 Seconds Height, Weight, BMI Height: 5'11.00" Weight: 178lbs. 9.0oz. 80.284355lf; 27.00 BMI Method: General Appearance: No Apparent Distress, WD/WN Eyes: Bilateral Eye Normal Inspection, Bilateral Eye PERRL, Bilateral Eye EOMI HEENT: PERRL/EOMI, Moist Mucous Membranes Neck: Supple Respiratory: Chest Non Tender; No Lungs Clear (slight wheeze on expiration); Normal Breath Sounds, No Accessory Muscle Use, No Respiratory Distress Cardiovascular: No Regular Rate, Rhythm (tachycardic); No Edema, No Murmur Gastrointestinal: Normal Bowel Sounds, No Organomegaly, No Pulsatile Mass, Non Tender, Soft Rectal: Deferred Extremity: Normal Capillary Refill, Normal Inspection, Non Tender, No Calf Tenderness, No Pedal Edema Neurologic/Psychiatric: Alert, Oriented x3, Normal Mood/Affect Skin: Normal Color, Warm/Dry Results Results/Procedures Labs Laboratory Tests 02/02/21 13:50 Patient resulted labs reviewed. Imaging NAME: ZAK MARQUEZ [facility] REC#: [id number] PT STATUS: REG ER : 1945 PHYSICIAN: ELIDIA MORIN APRN ADMIT DATE: 02/02/21/ER Signed Date of Exam:02/02/21 CHEST 1 VIEW, AP/PA ONLY INDICATION: Elevated heart rate and atrial fibrillation. TIME OF EXAM: 3:11 PM CORRELATION is made with prior chest from 10/02/2018. Changes of median sternotomy and CABG are noted. There is an airspace infiltrate that has developed in the right base. Otherwise, the lungs are clear. There is no effusion or pneumothorax. IMPRESSION: Right basilar infiltrate or atelectasis. Dictated by: Dictated on workstation # [id number] Dict: 02/02/21 1510 Trans: 02/02/21 1533 [facility] [id number] Interpreted by: TISH KANG MD Electronically signed by: TISH KANG MD 02/02/21 1533 Assessment/Plan Admission Diagnosis A. FIB Admission Status: Observation Reason for Inpatient Admission: Obs Assessment and Plan Afib -Cardilogy consulted -Received Diltiazem and carvedilol -Currently Tachy -Continue to monitor RLL PNA Leukocytosis -Pt received ABX -WBC 15 -Continue to monitor -Pt was 93% on RA in room Hyponatremia -130 -watch Fluids and continue to monitor -replace if needed Hyperkalemia -Pt recieved Kayexalate in ER -Continue to monitor w/ labs GUILLE -BUN 31 CREAT 1.87 -Do not know pt's baseline -Giving fluids and controlling BP -Will continue to monitor T2DM -Glucose 324 -Insulin or home meds, continue to monitor -Shoudl get sugars down a bit Hx of HTN, Bypass, Afib, CAD, smoker -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 Thorne and Dr. Holguin cardiology who has a known hx of AF on Eliquis for stroke prophylaxis who presented to the ER with weakness and palpitations and fast heart rate from Dr. Thorne's office. Pt was found to have AF with RVR and pneumonia. He was placed on Rocphin and Doxycycline and cardiology was consulted. He was placed in cardiac step-down and gentle IV fluids.. At this current time pt reports feeling very weak so I will initiate PT and OT. Source: patient, RN/MD, old records, spouse Exam Limitations: no limitations Past Vlpjvqv-Vyldkf-Gyxlhs Hx Patient Social History Marrital Status: Employed/Student: retired Smoking Status: Former Smoker Past Medical History Atrial Fibrillation, High Cholesterol, Hypertension Diabetes, Insulin dep, Diabetes, Non-Insulin dep Review of Systems Constitutional: see HPI, weakness EENTM: no symptoms reported Respiratory: cough, short of breath Cardiovascular: palpitations Gastrointestinal: no symptoms reported Genitourinary: no symptoms reported Musculoskeletal: no symptoms reported Skin: no symptoms reported Psychiatric/Neurological: No Symptoms Reported All Other Systems Reviewed Negative Unless Noted: Yes Physical Exam Physical Exam General Appearance: No Apparent Distress, Chronically ill Eyes: Right Eye Normal Inspection, Right Eye PERRL HEENT: PERRL/EOMI, Normal ENT Inspection, Pharynx Normal, Moist Mucous Membranes Neck: Full Range of Motion, Normal Inspection, Non Tender Respiratory: Chest Non Tender, Normal Breath Sounds, No Accessory Muscle Use, No Respiratory Distress, Decreased Breath Sounds, Wheezing Cardiovascular: No Edema, No Gallop, No JVD, No Murmur, Normal Peripheral Pulses, Irregularly Irregular, Tachycardia Gastrointestinal: Normal Bowel Sounds, No Organomegaly, No Pulsatile Mass, Non Tender, Soft Back: Normal Inspection, No CVA Tenderness, No Vertebral Tenderness Extremity: Normal Capillary Refill, Normal Inspection, Normal Range of Motion, Non Tender, No Calf Tenderness, No Pedal Edema Neurologic/Psychiatric: Alert, Oriented x3, No Motor/Sensory Deficits, Normal Mood/Affect Skin: Normal Color, Warm/Dry Lymphatic: No Adenopathy Assessment/Plan Admission Diagnosis Assessment: A. fib with RVR Chronic atrial fibrillation Anticoagulation Right lower lobe pneumonia Weakness Diabetes Hypertension Chronic kidney disease Plan: Rate control Cardiology Antibiotic Admission Status: Inpatient Order (span 2 midnights) Reason for Inpatient Admission: A. fib with pneumonia Diagnosis/Problems Diagnosis/Problems (1) Atrial fibrillation with RVR Status: Acute (2) RLL pneumonia Status: Acute (3) Hyperkalemia Status: Acute (4) Dehydration Status: Acute (5) Dyspnea Supervisory-Addendum Brief Verification & Attestation Participated in pt care: history, MDM, physical Personally performed: exam, history, MDM, supervision of care Care discussed with: Medical Student Procedures: n/a Results interpretation: Verified all documentation Verification and Attestation of Medical Student E/M Service A medical student performed and documented this service in my presence. I reviewed and verified all information documented by the medical student and made modifications to such information, when appropriate. I personally performed the physical exam and medical decision making. Judie Gold, Feb 04, 2021,05:38 FREDY CALLAWAY MED STUDENT Feb 02, 2021 16:06 JUDIE GOLD DO Feb 04, 2021 05:39
[2021-02-02] MEDS ORDERED: CALCIUM CARBONATE 500 MG (TUMS) TAB.CHEW PO PRN (16:30)
[2021-02-02] MEDS ORDERED: ALPRAZolam 0.25 MG (XANAX) TAB PO PRN (16:30)
[2021-02-02] MEDS ORDERED: cloNIDine 0.1 MG (CATAPRES) TAB PO PRN (16:30)
[2021-02-02] MEDS ORDERED: DOCUSATE SODIUM 100 MG (COLACE) CAP PO PRN (16:30)
[2021-02-02] MEDS ORDERED: morphine INJ 10 MG/ML 1ML (SYR OR VIAL) IVP PRN (16:30)
[2021-02-02] MEDS ORDERED: MELATONIN 3 MG TABLET PO PRN (16:30)
[2021-02-02] MEDS ORDERED: diphenhydrAMINE 25 MG TAB (BENADRYL) PO PRN (16:30)
[2021-02-02] MEDS ORDERED: LOPERAMIDE 2 MG (IMODIUM) TABLET PO PRN (16:30)
[2021-02-02] MEDS ORDERED: HYDROcodone/APAP 5 MG/325 MG (LORTAB) TAB PO PRN (16:30)
[2021-02-02] MEDS ORDERED: ONDANSETRON 4 MG/2 ML (SDV) Z0FRAN IVP PRN (16:30)
[2021-02-02] MEDS ORDERED: ACETAMINOPHEN 325 MG TABLET PO PRN (17:00)
[2021-02-02] MEDS: NS IV 1000 ML 1,000 ML IV SCH (17:23)
--- NOTE | 2021-02-02 17:43 | Consultation-Cardiology ---
HPI-Cardiology Cardiology Consultation: Date of Consultation 02/02/21 Time Seen by a Provider: 17:20 Date of Admission Attending Physician Judie Frankel DO Admitting Physician Karl Thorne MD Consulting Physician ARNALDO PONCE MD, MA, FACP, FACC, [facility], CCDS Physician requesting consult: Dr Frankel HPI: Chief Complaint: Reason for Card consult: A-fib HPI Mr. Escobedo is a 75 yr old male being admitted to [facility] from the ED. His spouse is at the bedside. He reports for approx the last week he as been feeling unwell. He reports gen weakness, fatigue, poor appetite, fever, chills and SOB. He denies any c/o palpitations, syncope or near syncope. No c/o LE swelling. He states he did not take his medications today. He reports d/t continued weakness he came to the ED. He states he is feeling much better at the time of this exam. 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 Ren at [facility]. He saw him last in October. Review of Systems-Cardiology Review of Systems Constitutional: chills, fever, malaise Eyes: No vision change Ears/Nose/Throat: No epistaxis, No recent hearing loss Respiratory: As described under HPI Cardiovascular: As described under HPI Gastrointestinal: As described under HPI, nausea Genitourinary: No dysuria, No hematuria Musculoskeletal: no symptoms reported Skin: No rash on exposed areas, No ulcerations on exposed areas Psychiatric/Neurological: No anxiety, No depression, No seizure, No focal weakness, No syncope Hematologic: No bleeding abnormalities TQK-Ilfcin-Ixggeq Hx Patient Social History Marrital Status: Smoking Status: Current Everyday Smoker Have you traveled recently?: No Alcohol Use?: Yes Pt feels they are or have been: No Tobacco type used: Cigarettes Immunizations Up To Date Date of Pneumonia Vaccine: Feb 18, 2009 Past Medical History PMH As described under Assessment. Family Medical History Family Medical History: No family h/o CAD or SCD. Allergies and Home Medications Allergies Coded Allergies: No Known Drug Allergies (Verified , 10/02/18) Patient Home Medication List Home Medication List Reviewed: Yes Aspirin (Aspirin) 81 Mg Tab.chew, 81 MG PO DAILY, (Reported) Entered as Reported by: GÓMEZ KRISHNAMURTHY on 12/27/16 1212 Clonidine HCl (Clonidine HCl ER) 0.1 Mg Tab.er.12h, 0.1 MG PO BID PRN for ELEVATED BP SYSTOLIC OVER 180, (Reported) Entered as Reported by: JOYCELYN WARE on 10/02/18 1049 Empagliflozin/Metformin HCl (Synjardy 5-500 mg Tablet) 1 Each Tablet, 1 EACH PO BID, (Reported) Entered as Reported by: GÓMZE KRISHNAMURTHY on 12/27/16 1212 Ezetimibe (Ezetimibe) 10 Mg Tablet, 10 MG PO DAILY, (Reported) Entered as Reported by: GÓMEZ KRISHNAMURTHY on 12/27/16 1212 Gabapentin (Gabapentin) 100 Mg Capsule, 100 MG PO TID, (Reported) Entered as Reported by: JOYCELYN WARE on 10/02/18 0812 Hydrocodone Bit/Acetaminophen (HYDROcodone/APAP 10/325 TABLET) 1 Each Tablet, 1 TAB PO Q8H PRN for PAIN-MODERATE, (Reported) Entered as Reported by: JOYCELYN WARE on 10/02/18 0814 Losartan Potassium (Losartan Potassium) 50 Mg Tablet, 50 MG PO DAILY, (Reported) Entered as Reported by: JOYCELYN WARE on 10/02/18 1049 Melatonin (Melatonin) 10 Mg Tab.subl, 10 MG SL DAILY, (Reported) Entered as Reported by: JOYCELYN WARE on 10/02/18 0815 Simvastatin (Simvastatin) 20 Mg Tablet, 20 MG PO DAILY, (Reported) Entered as Reported by: GÓMEZ KRISHNAMURTHY on 12/27/16 1212 Physical Exam-Cardiology Physical Exam Vital Signs/I&O 02/02/21 02/02/21 02/02/21 02/02/21 13:45 16:07 16:23 16:38 Temp 35.9 35.9 36.4 Pulse 115 134 104 114 Resp 20 20 20 B/P (MAP) 199/126 (150) 153/87 135/92 Pulse Ox 95 96 96 O2 Delivery Room Air Room Air Room Air 02/02/21 16:49 Pulse Ox 98 O2 Delivery Room Air Capillary Refill : Less Than 3 Seconds Constitutional: AAO x 3, well-developed, well-nourished HEENT: PERRL, hearing is well preserved, oral hygience is good Neck: No carotid bruit; carotid pulses are 2 + bilaterally Respiratory: No accessory muscle use, No respiratory distress; chest expansion is symmetric, chest is bilaterally symmetric, rhonchi (scattered insp/exp), other (coarse breath sounds) Cardiovascular: irregularly irregular, tachycardia, systolic murmur Gastrointestinal: No tender; soft, round, audible bowel sounds Extremities: no lower extremity edema bilateral Neurologic/Psychiatric: grossly intact (moves all extremities) Skin: No rash on exposed areas, No ulcerations on exposed areas Data Review Labs Laboratory Tests 02/02/21 13:50: White Blood Count 15.1H, Red Blood Count 5.32, Hemoglobin 16.7, Hematocrit 50, Mean Corpuscular Volume 93, Mean Corpuscular Hemoglobin 31, Mean Corpuscular Hemoglobin Concent 34, Red Cell Distribution Width 13.3, Platelet Count 165, Mean Platelet Volume 10.2, Immature Granulocyte % (Auto) 1, Neutrophils (%) (Auto) 78H, Lymphocytes (%) (Auto) 12, Monocytes (%) (Auto) 9, Eosinophils (%) (Auto) 0, Basophils (%) (Auto) 1, Neutrophils # (Auto) 11.7H, Lymphocytes # (Auto) 1.9, Monocytes # (Auto) 1.3H, Eosinophils # (Auto) 0.0, Basophils # (Auto) 0.1, Immature Granulocyte # (Auto) 0.1, Neutrophils % (Manual) 73, Lymphocytes % (Manual) 14, Monocytes % (Manual) 6, Eosinophils % (Manual) 0, Basophils % (Manual) 0, Band Neutrophils 7, Blood Morphology Comment NORMAL, Prothrombin Time 16.4H, INR Comment 1.3, Activated Partial Thromboplast Time 48H , Sodium Level 130L, Potassium Level 6.2H, Chloride Level 99, Carbon Dioxide Level 20L, Anion Gap 11, Blood Urea Nitrogen 31H, Creatinine 1.87H, Estimat Glomerular Filtration Rate 35, BUN/Creatinine Ratio 17, Glucose Level 324H, Calcium Level 9.7, Corrected Calcium 9.9, Magnesium Level 2.3, Total Bilirubin 1.2H, Aspartate Amino Transf (AST/SGOT) 38H, Alanine Aminotransferase (ALT/SGPT) 18, Alkaline Phosphatase 83, Myoglobin 122.2H, Troponin I < 0.028, B-Type Natriuretic Peptide 146.1H, Total Protein 9.5H, Albumin 3.8, Procalcitonin 0.26H 02/02/21 13:52: SARS-CoV-2 RNA (RT-PCR) Not Detected 02/02/21 14:22: Urine Color YELLOW, Urine Clarity CLEAR, Urine pH 6.0, Urine Specific [place] 1.020, Urine Protein 1+H, Urine Glucose (UA) 2+H, Urine Ketones 1+H, Urine Nitrite NEGATIVE, Urine Bilirubin NEGATIVE, Urine Urobilinogen 1.0, Urine Leukocyte Esterase NEGATIVE, Urine RBC (Auto) 1+H, Urine RBC RARE, Urine WBC NONE, Urine Squamous Epithelial Cells 0-2, Urine Crystals NONE, Urine Bacteria N EGATIVE, Urine Casts NONE, Urine Mucus NEGATIVE, Urine Culture Indicated NO 02/02/21 15:30: Lactic Acid Level 1.42 A/P-Cardiology Assessment/Admission Diagnosis A-flutter with RVR - reports chronic a-flutter - OAC with Eliquis - follows with Dr. Ren RLSteffanie pneumonia - management per medical services Acute renal insufficiency with electrolyte abnormalities - likely secondary to intravascular vol depletion d/t poor intake CAD - reports h/o 3 vessel CABG [place] [address] Whitman at [facility] in [place], [place] DM 2 - hyperglycemic Tobaccoism - 1 PPD Probable COPD Discussion and Recomendations Resume home dose of Coreg - add Cardizem CD for rate control Continue Eliquis 5mg BID - home medication Echocardiogram Request records from [facility] Continue ASA 81mg daily d/t CAD Management of pneumonia is per medical services Hyperkalemia - kayexalate already given Monitor electrolytes closely - treat as indicated Further recs will be based on his hospital course We would like to thank Medical services for this consult ARNALDO PONCE MD FACP FAC CCDS Feb 02, 2021 17:43
[2021-02-02 19:25] LABS: CALCIUM 9.2 MG/DL (8.5-10.1); CREATININE SERUM 1.56 MG/DL (0.60-1.30); POTASSIUM 4.3 MMOL/L (3.6-5.0)
[2021-02-02] MEDS: DOXYCYCLINE INJECTION 100 MG in NS (IVPB) 100 ML IV SCH (20:25)
[2021-02-02] MEDS: APIXABAN 5 MG (ELIQUIS) TABLET PO SCH (20:25)
[2021-02-02] MEDS: SENNA W/DOCUSATE (SENOKOT S) TABLET PO SCH (20:25)
[2021-02-02] MEDS: FAMOTIDINE 20 MG (PEPCID) TABLET PO SCH (20:25)
[2021-02-02] MEDS: inSUlin ASPART (NovoLOG) 1 UNIT/0.01 ML (CHARGE PER UNIT) SC SCH (20:30)
[2021-02-02] MEDS ORDERED: APIXABAN 5 MG (ELIQUIS) TABLET PO SCH (21:00)
[2021-02-02] MEDS: RT-ALBUTEROL SULF 2.5 MG/3 ML PRE-MIX VIAL INH SCH (22:21)
[2021-02-03 01:03] VITALS: BP 199/126
[2021-02-03] MEDS: NS IV 1000 ML 1,000 ML IV SCH ×2 (01:31→18:53)
[2021-02-03 05:16] LABS: BASOPHILS # (AUTO) 0.1 10^3/uL (0.0-0.1); BASOPHILS % (AUTO) 1 % (0-10); EOSINOPHILS % (AUTO) 0 % (0-10); HEMATOCRIT 43 % (40-54); HEMOGLOBIN 14.6 g/dL (13.3-17.7); LYMPHOCYTES # (AUTO) 1.7 10^3/uL (1.0-4.0); LYMPHOCYTES % (AUTO) 13 % (12-44); MEAN CORPUSCULAR HEMOGLOBIN 31 pg (25-34); MEAN CORPUSCULAR HGB CONC 34 g/dL (32-36); MEAN CORPUSCULAR VOLUME 92 fL (80-99); MEAN PLATELET VOLUME 10.2 fL (9.0-12.2); MONOCYTES # (AUTO) 1.2 10^3/uL (0.0-1.0); MONOCYTES % (AUTO) 10 % (0-12); NEUTROPHILS # (AUTO) 9.5 10^3/uL (1.8-7.8); NEUTROPHILS % (AUTO) 76 % (42-75); PLATELET COUNT 150 10^3/uL (130-400); WHITE BLOOD COUNT 12.6 10^3/uL (4.3-11.0)
[2021-02-03 05:26] LABS: ALBUMIN 3.3 GM/DL (3.2-4.5)
[2021-02-03 05:27] LABS: CALCIUM 8.8 MG/DL (8.5-10.1); TRIGLYCERIDES 88 MG/DL (<150); VLDL CHOLESTEROL 18 MG/DL (5-40)
[2021-02-03 05:32] LABS: CHOLESTEROL 80 MG/DL (< 200); CREATININE SERUM 1.16 MG/DL (0.60-1.30)
[2021-02-03 05:33] LABS: HDL CHOLESTEROL 20 MG/DL (40-60)
[2021-02-03 05:35] LABS: MAGNESIUM 1.9 MG/DL (1.6-2.4)
[2021-02-03] MEDS: inSUlin ASPART (NovoLOG) 1 UNIT/0.01 ML (CHARGE PER UNIT) SC SCH ×4 (06:12→21:28)
[2021-02-03] MEDS: RT-ALBUTEROL SULF 2.5 MG/3 ML PRE-MIX VIAL INH SCH ×3 (07:10→21:24)
[2021-02-03] MEDS: cefTRIAXone 1 GM PRE-MIX 50 ML IV SCH (09:09)
[2021-02-03] MEDS: APIXABAN 5 MG (ELIQUIS) TABLET PO SCH ×2 (09:12→16:57)
[2021-02-03] MEDS: FAMOTIDINE 20 MG (PEPCID) TABLET PO SCH ×2 (09:13→21:27)
[2021-02-03] MEDS: SENNA W/DOCUSATE (SENOKOT S) TABLET PO SCH ×2 (09:15→23:46)
[2021-02-03] MEDS ORDERED: LOSA100T57 PO (10:00)
[2021-02-03] MEDS ORDERED: HYDR-3820 PO (10:00)
[2021-02-03] MEDS ORDERED: ASPI-1238 PO (10:00)
[2021-02-03] MEDS ORDERED: DEXT1TAB3 PO (10:00)
[2021-02-03] MEDS ORDERED: GABA300C PO (10:00)
[2021-02-03] MEDS ORDERED: APIX5TAB PO (10:00)
[2021-02-03] MEDS ORDERED: DULA1.5P2 SQ (10:00)
[2021-02-03] MEDS ORDERED: CARV25TA PO (10:00)
[2021-02-03] MEDS ORDERED: SITA100T12 PO (10:00)
--- NOTE | 2021-02-03 10:04 | Progress Note - Cardiology ---
Cardiology SOAP Progress Note Objective: I&O/Vital Signs 02/02/21 02/02/21 02/03/21 02/03/21 22:22 23:43 01:00 01:03 Temp 36.7 35.9 Pulse 91 92 115 Resp 23 B/P (MAP) 147/92 Pulse Ox 96 93 95 O2 Delivery Room Air Room Air FiO2 21 02/03/21 02/03/21 02/03/21 02/03/21 04:14 07:00 07:10 08:16 Temp 36.2 35.6 Pulse 106 90 106 Resp 22 17 B/P (MAP) 151/99 134/79 Pulse Ox 97 96 92 O2 Delivery Room Air Room Air Room Air 02/03/21 00:00 Intake Total 1400 ml Balance 1400 ml Weight (Pounds): 178 Weight (Ounces): 9.0 Weight (Calculated Kilograms): 80.149921 Constitutional: AAO x 3, well-developed, well-nourished Respiratory: No accessory muscle use, No respiratory distress; chest expansion is symmetric, chest is bilaterally symmetric, rhonchi (scattered insp/exp), other (coarse breath sounds) Cardiovascular: irregularly irregular, tachycardia, systolic murmur Gastrointestional: No tender; soft, round, audible bowel sounds Extremities: no lower extremity edema bilateral Neurologic/Psychiatric: grossly intact (moves all extremities) Skin: No rash on exposed areas, No ulcerations on exposed areas Results/Procedures: Labs Laboratory Tests 02/02/21 13:50: White Blood Count 15.1H, Red Blood Count 5.32, Hemoglobin 16.7, Hematocrit 50, Mean Corpuscular Volume 93, Mean Corpuscular Hemoglobin 31, Mean Corpuscular Hemoglobin Concent 34, Red Cell Distribution Width 13.3, Platelet Count 165, Mean Platelet Volume 10.2, Immature Granulocyte % (Auto) 1, Neutrophils (%) (Auto) 78H, Lymphocytes (%) (Auto) 12, Monocytes (%) (Auto) 9, Eosinophils (%) (Auto) 0, Basophils (%) (Auto) 1, Neutrophils # (Auto) 11.7H, Lymphocytes # (Auto) 1.9, Monocytes # (Auto) 1.3H, Eosinophils # (Auto) 0.0, Basophils # (Auto) 0.1, Immature Granulocyte # (Auto) 0.1, Neutrophils % (Manual) 73, Lymphocytes % (Manual) 14, Monocytes % (Manual) 6, Eosinophils % (Manual) 0, Basophils % (Manual) 0, Band Neutrophils 7, Blood Morphology Comment NORMAL, Prothrombin Time 16.4H, INR Comment 1.3, Activated Partial Thromboplast Time 48H , Sodium Level 130L, Potassium Level 6.2H, Chloride Level 99, Carbon Dioxide Level 20L, Anion Gap 11, Blood Urea Nitrogen 31H, Creatinine 1.87H, Estimat Glomerular Filtration Rate 35, BUN/Creatinine Ratio 17, Glucose Level 324H, Calcium Level 9.7, Corrected Calcium 9.9, Magnesium Level 2.3, Total Bilirubin 1.2H, Aspartate Amino Transf (AST/SGOT) 38H, Alanine Aminotransferase (ALT/SGPT) 18, Alkaline Phosphatase 83, Myoglobin 122.2H, Troponin I < 0.028, B-Type Natriuretic Peptide 146.1H, Total Protein 9.5H, Albumin 3.8, Procalcitonin 0.26H 02/02/21 13:52: SARS-CoV-2 RNA (RT-PCR) Not Detected 02/02/21 14:22: Urine Color YELLOW, Urine Clarity CLEAR, Urine pH 6.0, Urine Specific [place] 1.020, Urine Protein 1+H, Urine Glucose (UA) 2+H, Urine Ketones 1+H, Urine Nitrite NEGATIVE, Urine Bilirubin NEGATIVE, Urine Urobilinogen 1.0, Urine Leukocyte Esterase NEGATIVE, Urine RBC (Auto) 1+H, Urine RBC RARE, Urine WBC NONE, Urine Squamous Epithelial Cells 0-2, Urine Crystals NONE, Urine Bacteria NEGATIVE, Urine Casts NONE, Urine Mucus NEGATIVE, Urine Culture Indicated NO 02/02/21 15:30: Lactic Acid Level 1.42 02/02/21 18:42: Sodium Level 136, Potassium Level 4.3, Chloride Level 102, Carbon Dioxide Level 22, Anion Gap 12, Blood Urea Nitrogen 26H, Creatinine 1.56H, Estimat Glomerular Filtration Rate 44, BUN/Creatinine Ratio 17, Glucose Level 286H, Calcium Level 9.2 02/03/21 05:05: Sodium Level 139, Potassium Level 4.0, Chloride Level 107, Carbon Dioxide Level 19L, Anion Gap 13, Blood Urea Nitrogen 21H, Creatinine 1.16, Estimat Glomerular Filtration Rate 61, BUN/Creatinine Ratio 18, Glucose Level 202H, Calcium Level 8.8, White Blood Count 12.6H, Red Blood Count 4.71, Hemoglobin 14.6, Hematocrit 43, Mean Corpuscular Volume 92, Mean Corpuscular Hemoglobin 31, Mean Corpuscular Hemoglobin Concent 34, Red Cell Distribution Width 13.2, Platelet Count 150, Mean Platelet Volume 10.2, Immature Granulocyte % (Auto) 1, Neutrophils (%) (Auto) 76H, Lymphocytes (%) (Auto) 13, Monocytes (%) (Auto) 10, Eosinophils (%) (Auto) 0, Basophils (%) (Auto) 1, Neutrophils # (Auto) 9.5H, Lymphocytes # (Auto) 1.7, Monocytes # (Auto) 1.2H, Eosinophils # (Auto) 0.0, Basophils # (Auto) 0.1, Immature Granulocyte # (Auto) 0.1, Corrected Calcium 9.4, Magnesium Level 1.9, Total Bilirubin 1.0, Aspartate Amino Transf (AST/SGOT) 16, Alanine Aminotransferase (ALT/SGPT) 17, Alkaline Phosphatase 71, Total Protein 7.0, Albumin 3.3, Triglycerides Level 88, Cholesterol Level 80, LDL Cholesterol Direc t 41, VLDL Cholesterol 18, HDL Cholesterol 20L Laboratory Tests 02/02/21 13:50 02/02/21 18:42 02/03/21 05:05 A/P: Assessment: A-flutter with RVR - reports chronic a-flutter - OAC with Eliquis - follows with Dr. Ren RLL pneumonia - management per medical services Acute renal insufficiency with electrolyte abnormalities - likely secondary to intravascular vol depletion d/t poor intake CAD - reports h/o 3 vessel CABG [place] [address] Whitman at [facility] in [place], [place] DM 2 - hyperglycemic Tobaccoism - 1 PPD Probable COPD Plan: Continue current dose of Coreg and Cardizem CD Continue Eliquis 5mg BID - home medication Echocardiogram Request records from [facility] - have not received yet Continue ASA 81mg daily d/t CAD Management of pneumonia is per medical services Hyperkalemia - resolved Monitor electrolytes closely - treat as indicated SRI KELLY Feb 03, 2021 10:04
[2021-02-03] MEDS: DOXYCYCLINE INJECTION 100 MG in NS (IVPB) 100 ML IV SCH ×2 (10:24→21:27)
--- NOTE | 2021-02-03 13:07 | Progress Note - Hospitalist ---
FREDY CALLAWAY MED STUDENT 02/03/21 1307: Subjective HPI/CC On Admission Date Seen by Provider: Feb 03, 2021 Time Seen by Provider: 10:40 CC- Chest Pain/Afib Mr Escobedo is a 75yo smoker w/ hx of HTN, DM2, Afib, HLD, and 3x Bypass, CAD presented to ER earlier today from Dr. Thorne's office after being instructed to report to the ER. He states that for about a week now he has felt like he had a cold. Describes being dehydrated, clammy, and overall not feeling well. He states today his heart rate and blood pressure where high as well as his sugars. He states that this gradually came on and progressively got worse until today when he was told to come in. He did state that he did not take his eliquis his morning dose of carvedilol. He did get some relief with some cough and congestion medication. Nothing specifically made him feel worse over this time that he can think of. He complains of fever, chills, SOB, cough. He denies Headache, N/V, CP, palpitations, ABD pain, Bowel or bladder changes, swelling or pain in his legs or feet. He states he has never been hospitalized for anything like this in the past. He is a 60 yr smoker, does not drink alcohol or use elicit drugs. He states that there is no family history of disease he can think of including, caridac, respiratory, metabolic, and cancers. He has had heart surgery and 3 bypasses, surgery of his knees, and a hernia repair. He states he has a medical history of HTN, diabetes, and afib. Subjective/Events-last exam Pt is awake and sitting up in bed this morning. States that he is feeling better and that he is not having any pain. He denies any CP and SOB. States that he talked to cardiology this morning who said that they are waiting to see the results of his echo. He has been eating and drinking okay with no nausea or vomiting. States he is having some diarrhea this morning from the medications he is taking. Does complain of a bit of cough or wheeze. Review of Systems General: No Chills, No Night Sweats, No Malaise HEENT: No Head Aches, No Dysphasia Pulmonary: No Dyspnea; Cough; No Pleuritic Chest Pain Cardiovascular: No: Chest Pain, Palpitations, Edema Gastrointestinal: Diarrhea; No: Nausea, Vomiting, Abdominal Pain, Constipation, Melena Genitourinary: No Dysuria, No Frequency, No Incontinence Musculoskeletal: No: leg pain, foot pain Neurological: No: Weakness, Numbness Focused Exam Lactate Level 02/02/21 15:30: Lactic Acid Level 1.42 Objective Exam Vital Signs Vital Signs Date Time Temp Pulse Resp B/P (MAP) Pulse Ox O2 Delivery O2 Flow Rate FiO2 02/03/21 12:46 81 02/03/21 08:16 35.6 17 134/79 92 Room Air 02/03/21 01:03 21 Capillary Refill : Less Than 3 Seconds General Appearance: No Apparent Distress HEENT: Moist Mucous Membranes Neck: Supple Respiratory: Chest Non Tender; No Lungs Clear (Slightly deminished ); Normal Breath Sounds, No Accessory Muscle Use, No Respiratory Distress Cardiovascular: Regular Rate, Rhythm, No Edema, No Murmur, Normal Peripheral Pulses Gastrointestinal: Normal Bowel Sounds, No Organomegaly, Non Tender, Soft Rectal: Deferred Extremity: Normal Capillary Refill, Normal Inspection, Non Tender, No Calf Tenderness, No Pedal Edema Neurologic/Psychiatric: Alert, Oriented x3, Normal Mood/Affect Skin: Normal Color, Warm/Dry Results/Procedures Lab Laboratory Tests 02/02/21 13:50 02/02/21 18:42 02/03/21 05:05 Patient resulted labs reviewed. Assessment/Plan Assessment and Plan Assess & Plan/Chief Complaint Afib -Cardilogy consulted -Received Diltiazem and carvedilol -Currently Tachy -Continue to monitor -Echo this morning -HR was 91 this morning RLL PNA Leukocytosis -Pt received ABX -WBC 12.6 -Continue to monitor -Pt was 93% on RA in room Hyponatremia -139 -watch Fluids and continue to monitor -replace if needed Hyperkalemia -Pt recieved Kayexalate in ER -Continue to monitor w/ labs -4.0 today GUILLE -BUN 21 CREAT 1.16 -Improved -Do not know pt's baseline -Fluids stopped and controlling BP -Will continue to monitor T2DM -Glucose 199 -Insulin or home meds, continue to monitor -Should get sugars down a bit Hx of HTN, Bypass, Afib, CAD, smoker -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 -Continue to monitor Supervisory-Addendum Brief Verification & Attestation Participated in pt care: history, physical Personally performed: exam Care discussed with: Medical Student Procedures: n/a n/a JUDIE GOLD DO 02/04/21 0621: Subjective Subjective/Events-last exam Pt doing a lot better Still very weak is at the bedside Denies any new issues Will move down to 4th floor Review of Systems General: Fatigue, Malaise Objective Exam General Appearance: No Apparent Distress, WD/WN, Chronically ill Respiratory: No Accessory Muscle Use, No Respiratory Distress, Decreased Breath Sounds Cardiovascular: Irregularly Irregular, Tachycardia Neurologic/Psychiatric: Alert, Oriented x3 Assessment/Plan Assessment and Plan Assess & Plan/Chief Complaint Move to floor PT and OT Supervisory-Addendum Brief Verification & Attestation Participated in pt care: history, MDM, physical Personally performed: exam, history, MDM, supervision of care Care discussed with: Medical Student Procedures: n/a Results interpretation: Verified all documentation Verification and Attestation of Medical Student E/M Service A medical student performed and documented this service in my presence. I reviewed and verified all information documented by the medical student and made modifications to such information, when appropriate. I personally performed the physical exam and medical decision making. Judie Gold, Feb 04, 2021,06:21 FREDY CALLAWAY MED STUDENT Feb 03, 2021 13:07 JUDIE GOLD DO Feb 04, 2021 06:21
--- NOTE | 2021-02-03 13:47 | Physical Therapy Evaluation ---
PT Evaluation-General Medical Diagnosis Admission Date Feb 02, 2021 at 15:14 Medical Diagnosis: afib Onset Date: Feb 02, 2021 Therapy Diagnosis Therapy Diagnosis: independent with mobility Height/Weight Height (Feet): 5 Height (Inches): 11.00 Weight (Pounds): 178 Weight (Ounces): 9.0 Precautions Precautions/Isolations: Standard Precautions Referral Physician: Jostin Reason for Referral: Evaluation/Treatment Medical History Additional Medical History Past Medical History Surgeries: Gallbladder Coronary Artery Disease, High Cholesterol Sexually Transmitted Disease: No HIV/AIDS: No Kidney Stones Gall Bladder Disease Arthritis Diabetes, Insulin dep Loss of Vision: Bilateral Hearing Impairment: Denies Blood Disorders: No Adverse Reaction/Blood Tranf: No Reviewed History: Yes Social History Home: Multilevel Current Living Status: Spouse Entry Into Home: Stairs With Railing PT Steps Into Home: 2 Prior Prior Level of Function SCALE: Activities may be completed with or without assistive devices. 4-Sraosvikbg-gtktqpn completes the activity by him/herself with no assistance from a helper. 5-Set-up or Clean-up Assistance-helper sets up or cleans up; patient completes activity. [place] assists only prior to or following the activity. 4-Supervision or Touching Assistance-helper provides verbal cues and/or touching/steadying and/or contact guard assistance as patient completes activity. Assistance may be provided throughout the activity or intermittently. 3-Partial/Moderate Assistance-helper does LESS THAN HALF the effort. [place] lifts, holds or supports trunk or limbs, but provides less than half the effort. 2-Substantial/Maximal Assistance-helper does MORE THAN HALF the effort. [place] lifts or holds trunk or limbs and provides more than half the effort. 6-Akmlbcbpo-vcxero does ALL the effort. Patient does none of the effort to complete the activity. Or, the assistance of 2 or more helpers is required for the patient to complete the activity. If activity was not attempted, code reason: 7-Patient Refused. 9-Not Applicable-not attempted and the patient did not perform the activity before the current illness, exacerbation or injury. 10-Not Attempted due to Environmental Limitations-(lack of equipment, weather restraints, etc.). 88-Not Attempted due to Medical Conditions or Safety Concerns. Bed Mobility: 6 Transfers (B,C,W/C): 6 Gait: 6 Stairs: 6 Indoor Mobility (Ambulation): Independent Stairs: Independent PT Evaluation-Current Subjective Patient in bed pre tx, agrees to PT, has no complaints of pain but says he has loose stools. Pt/Family Goals to be independent at home Objective Patient Orientation: Person, Place, Situation Attachments: IV ROM/Strength ROM Lower Extremities WNL Strength Lower Extremities grossly 5/5 BLE Sensory Vision: Wears Glasses Hearing: Functional Sensation Right Lower Extremit: Intact Sensation Left Lower Extremity: Intact Transfers Roll Left to Right (QC): 6 Sit to Lying (QC): 6 Lying to Sitting/Side of Bed(Q: 6 Sit to Stand (QC): 6 Chair/Xfi-bt-Qjvdb Xfer(QC): 6 Gait Does the Patient Walk?: Yes Mode of Locomotion: Walk Anticipated Mode of Locomotion: Walk Walk 10 feet (QC): 6 Walk 50 ft with 2 Turns(QC): 6 Walk 150 ft (QC): 6 Distance: 200' Gait Assistive Device: None Comments/Gait Description Patient pushed his own IV pole, 150' ambulation, steady Balance Sitting Static: Normal Sitting Dynamic: Normal Standing Static: Normal Standing Dynamic: Normal Assessment/Needs Patient in bed post tx with nurse call, phone, tray, all needs met. Patient is independent with mobility. He will be discharged from PT at this time. Rehab Potential: Good PT Plan Treatment/Plan Treatment Plan: Discontinue PT Treatment Duration: Feb 03, 2021 Frequency: Safety Risks/Education Patient Education: Gait Training, Transfer Techniques, Correct Positioning, Safety Issues Teaching Recipient: Patient Teaching Methods: Demonstration, Discussion Response to Teaching: Verbalize Understanding, Return Demonstration Discharge Recommendations Plan DC Therapy Discharge Recommendati: Home & Family Time/GCodes Time In: 1314 Time Out: 1324 Total Billed Treatment Time: 10 Total Billed Treatment 1 visit EVL 10' MAKI SIBLEY PT Feb 03, 2021 13:47
--- NOTE | 2021-02-03 13:57 | Occupational Therapy Eval ---
OT Evaluation-General/PLF Medical Diagnosis Admission Date Feb 02, 2021 at 15:14 Medical Diagnosis: afib Onset Date: Feb 02, 2021 Therapy Diagnosis Therapy Diagnosis: n/a Height/Weight Height (Feet): 5 Height (Inches): 11.00 Weight (Pounds): 178 Weight (Ounces): 9.0 Precautions Precautions/Isolations: Standard Precautions Referral Physician: Jostin Referral Reason: Evaluation/Treatment Medical History Additional Medical History HTN, DM, AFIB, HLD, 3x Bypass, CAD, former smoker, knee surgeries Current History ED from Dr. Thorne's office with instruction to report to ED Social History Home: Multilevel Current Living Status: Spouse Entry Into Home: Stairs With Railing Steps Into Home: 2 ADL-Prior Level of Function SCALE: Activities may be completed with or without assistive devices. 1-Aqnleqfnxe-fagemhe completes the activity by him/herself with no assistance from a helper. 5-Set-up or Clean-up Assistance-helper sets up or cleans up; patient completes activity. [place] assists only prior to or following the activity. 4-Supervision or Touching Assistance-helper provides verbal cues and/or touching/steadying and/or contact guard assistance as patient completes activity. Assistance may be provided throughout the activity or intermittently. 3-Partial/Moderate Assistance-helper does LESS THAN HALF the effort. [place] lifts, holds or supports trunk or limbs, but provides less than half the effort. 2-Substantial/Maximal Assistance-helper does MORE THAN HALF the effort. [place] lifts or holds trunk or limbs and provides more than half the effort. 0-Fnclwrkdz-kubtwh does ALL the effort. Patient does none of the effort to complete the activity. Or, the assistance of 2 or more helpers is required for the patient to complete the activity. If activity was not attempted, code reason: 7-Patient Refused. 9-Not Applicable-not attempted and the patient did not perform the activity before the current illness, exacerbation or injury. 10-Not Attempted due to Environmental Limitations-(lack of equipment, weather restraints, etc.). 88-Not Attempted due to Medical Conditions or Safety Concerns. ADL PLOF Comments Pt reports IND with ADLs and functional mobility at PLOF, no AD. Self Care: Independent Functional Cognition: Independent OT Current Status Subjective Pt seated EOB, agreeable to OT evaluation/tx. Mental Status/Objective Patient Orientation: Normal For Age Attachments: IV, Telemetry Current Upper Extremity ROM WFL, BUE shoulder flexion to approx 150 degrees Upper Extremity Coordination WFL Upper Extremity Strength grossly 4+/5 ADL-Treatment Eating (QC): 6 (Per pt report) Oral Hygiene (QC): 6 (based on clinical judgment.) On/Off Footwear (QC): 6 (IND with slip on shoes.) Toileting Hygiene (QC): 6 (IND per pt report.) Other Treatments Pt seated EOB, able to don footwear independently. Pt provided information about PLOF and home set up, and participated in UE screen. Pt states he has been able to manage IV pole and take self to the bathroom. Pt performed functional mobility in hallway, pushing IV pole, 150' independently (No AD). Pt returned to his room, seated EOB. Pt states he feels like he is at PLOF, independent with all ADLs, and has no concerns with ADLs upon discharging. Post tx, pt at EOB, call light in reach and all needs met. 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 2=Patient will verbalize/demonstrate understanding of assistive devices/modifications for ADL. 3=Patient will improve strength/tolerance for activity to enable patient to perform ADL's. OT Education/Plan Problem List/Assessment Assessment: No Skilled OT Needs ID'd No skilled OT services indicated at this time as pt is independent with ADLs and functional mobility and at PLOF. D/C from OT Discharge Recommendations Plan/Recommendations: Discharge/Goals Met Treatment Plan/Plan of Care Patient would benefit from OT for education, treatment and training to promote independence in ADL's, mobility, safety and/or upper extremity function for ADL's. Plan of Care: ADL Retraining, Functional Mobility Treatment Duration: Feb 03, 2021 Frequency: 1 time per week (eval only) Rehab Potential: Good Time/GCodes Start Time: 13:13 Stop Time: 13:24 Total Time Billed (hr/min): 11 Billed Treatment Time 1, EVL CRUMPACKER,FER OT Feb 03, 2021 13:57
--- NOTE | 2021-02-03 15:12 | Progress Note - Cardiology ---
Cardiology SOAP Progress Note Subjective: Gen malaise and weakness Shortness of breath with activity No palp No cp No n/v/d Objective: I&O/Vital Signs 02/03/21 02/03/21 02/03/21 02/03/21 04:14 07:00 07:10 08:16 Temp 36.2 35.6 Pulse 106 90 106 Resp 22 17 B/P (MAP) 151/99 134/79 Pulse Ox 97 96 92 O2 Delivery Room Air Room Air Room Air 02/03/21 02/03/21 02/03/21 09:00 12:37 12:46 Temp 36.5 Pulse 66 81 Resp 23 B/P (MAP) 131/73 Pulse Ox 94 95 O2 Delivery Room Air Room Air 02/03/21 00:00 Intake Total 1400 ml Balance 1400 ml Weight (Pounds): 178 Weight (Ounces): 9.0 Weight (Calculated Kilograms): 80.307949 Constitutional: AAO x 3, well-developed, well-nourished Respiratory: No accessory muscle use, No respiratory distress; chest expansion is symmetric, chest is bilaterally symmetric, rhonchi (scattered insp/exp), other (coarse breath sounds) Cardiovascular: irregularly irregular, tachycardia, systolic murmur Gastrointestional: No tender; soft, round, audible bowel sounds Extremities: no lower extremity edema bilateral Neurologic/Psychiatric: grossly intact (moves all extremities) Skin: No rash on exposed areas, No ulcerations on exposed areas Results/Procedures: Labs Laboratory Tests 02/02/21 15:30: Lactic Acid Level 1.42 02/02/21 18:42: Sodium Level 136, Potassium Level 4.3, Chloride Level 102, Carbon Dioxide Level 22, Anion Gap 12, Blood Urea Nitrogen 26H, Creatinine 1.56H, Estimat Glomerular Filtration Rate 44, BUN/Creatinine Ratio 17, Glucose Level 286H, Calcium Level 9.2 02/03/21 05:05: Sodium Level 139, Potassium Level 4.0, Chloride Level 107, Carbon Dioxide Level 19L, Anion Gap 13, Blood Urea Nitrogen 21H, Creatinine 1.16, Estimat Glomerular Filtration Rate 61, BUN/Creatinine Ratio 18, Glucose Level 202H, Calcium Level 8.8, White Blood Count 12.6H, Red Blood Count 4.71, Hemoglobin 14.6, Hematocrit 43, Mean Corpuscular Volume 92, Mean Corpuscular Hemoglobin 31, Mean Corpuscular Hemoglobin Concent 34, Red Cell Distribution Width 13.2, Platelet Count 150, Mean Platelet Volume 10.2, Immature Granulocyte % (Auto) 1, Neutrophils (%) (Auto) 76H, Lymphocytes (%) (Auto) 13, Monocytes (%) (Auto) 10, Eosinophils (%) (Auto) 0, Basophils (%) (Auto) 1, Neutrophils # (Auto) 9.5H, Lymphocytes # (Auto) 1.7, Monocytes # (Auto) 1.2H, Eosinophils # (Auto) 0.0, Basophils # (Auto) 0.1, Immature Granulocyte # (Auto) 0.1, Corrected Calcium 9.4, Magnesium Level 1.9, Total Bilirubin 1.0, Aspartate Amino Transf (AST/SGOT) 16, Alanine Aminotransferase (ALT/SGPT) 17, Alkaline Phosphatase 71, Total Protein 7.0, Albumin 3.3, Triglycerides Level 88, Cholesterol Level 80, LDL Cholesterol Direct 41, VLDL Cholesterol 18, HDL Cholesterol 20L 02/03/21 10:13: Glucometer 199H Laboratory Tests 02/02/21 13:50 02/02/21 18:42 02/03/21 05:05 A/P: Assessment: A-flutter with RVR, chronic (per pt report) followed by Dr Ren - OAC with Eliquis - Echo 02/03/21: LVEF 50-55%, biatrial enlargement, mild MR, PASP 50-55 mmHg RLL pneumonia - management per medical services Acute renal insufficiency with electrolyte abnormalities - likely secondary to intravascular vol depletion d/t poor intake CAD - reports h/o 3 vessel CABG [place] [address] Whitman at [facility] in [place], [place] DM 2 - hyperglycemic Tobaccoism - 1 PPD Probable COPD Plan: Continue current dose of Coreg and Cardizem CD Continue Eliquis 5mg BID - home medication Discussed echo results with the patient and his Request records from [facility] - have not received yet Continue ASA 81mg daily d/t CAD Management of pneumonia is per medical services Hyperkalemia - resolved Monitor electrolytes closely - treat as indicated ARNALDO PONCE MD FACP [facility] Feb 03, 2021 15:12
[2021-02-03] MEDS: GABAPENTIN 300 MG (NEURONTIN) CAP PO SCH ×2 (16:57→21:27)
[2021-02-03] MEDS ORDERED: NON-FORMULARY MEDICATION 1 EA EA (Melatonin 10 MG) PO SCH (21:00)
[2021-02-03] MEDS ORDERED: eZETimibe 10 MG (ZETIA) TABLET PO SCH (21:00)
[2021-02-03] MEDS ORDERED: AtorvaSTATin TABLET 10 MG TABLET PO SCH (21:00)
[2021-02-03] MEDS ORDERED: SIMvastatin 20 MG (ZOCOR) TAB PO SCH (21:00)
[2021-02-03] MEDS ORDERED: MELATONIN 10 MG TABLET PO SCH (21:00)
[2021-02-03] MEDS ORDERED: ASPIRIN E.C. 81 MG (ECOTRIN) TAB PO SCH (21:00)
[2021-02-04] MEDS: inSUlin ASPART (NovoLOG) 1 UNIT/0.01 ML (CHARGE PER UNIT) SC SCH ×2 (05:39→12:05)
[2021-02-04 05:44] LABS: BASOPHILS # (AUTO) 0.1 10^3/uL (0.0-0.1); BASOPHILS % (AUTO) 1 % (0-10); EOSINOPHILS # (AUTO) 0.1 10^3/uL (0.0-0.3); EOSINOPHILS % (AUTO) 1 % (0-10); HEMATOCRIT 42 % (40-54); HEMOGLOBIN 14.5 g/dL (13.3-17.7); LYMPHOCYTES % (AUTO) 17 % (12-44); MEAN CORPUSCULAR HEMOGLOBIN 31 pg (25-34); MEAN CORPUSCULAR HGB CONC 34 g/dL (32-36); MEAN CORPUSCULAR VOLUME 91 fL (80-99); MONOCYTES # (AUTO) 1.2 10^3/uL (0.0-1.0); MONOCYTES % (AUTO) 10 % (0-12); NEUTROPHILS # (AUTO) 8.2 10^3/uL (1.8-7.8); NEUTROPHILS % (AUTO) 71 % (42-75); PLATELET COUNT 170 10^3/uL (130-400); WHITE BLOOD COUNT 11.6 10^3/uL (4.3-11.0)
[2021-02-04 05:57] LABS: ALBUMIN 3.1 GM/DL (3.2-4.5); POTASSIUM 3.7 MMOL/L (3.6-5.0)
[2021-02-04 05:58] LABS: CALCIUM 8.6 MG/DL (8.5-10.1)
[2021-02-04 05:59] LABS: TOTAL PROTEIN 6.7 GM/DL (6.4-8.2)
[2021-02-04 06:01] LABS: BILIRUBIN,TOTAL 0.8 MG/DL (0.1-1.0)
[2021-02-04 06:03] LABS: CREATININE SERUM 0.99 MG/DL (0.60-1.30)
[2021-02-04] MEDS: RT-ALBUTEROL SULF 2.5 MG/3 ML PRE-MIX VIAL INH SCH (07:22)
[2021-02-04] MEDS: NS IV 1000 ML 1,000 ML IV SCH (07:43)
[2021-02-04] MEDS ORDERED: LOSARTAN 100 MG (COZAAR) TABLET PO SCH (09:00)
[2021-02-04] MEDS ORDERED: NON-FORMULARY MEDICATION 1 EA EA (Sitagliptin Phosphate (Januvia) 100 MG) PO SCH (09:00)
[2021-02-04] MEDS: cefTRIAXone 1 GM PRE-MIX 50 ML IV SCH (09:21)
[2021-02-04] MEDS: FAMOTIDINE 20 MG (PEPCID) TABLET PO SCH (09:22)
[2021-02-04] MEDS: GABAPENTIN 300 MG (NEURONTIN) CAP PO SCH (09:22)
[2021-02-04] MEDS: APIXABAN 5 MG (ELIQUIS) TABLET PO SCH (09:22)
[2021-02-04] MEDS: DOXYCYCLINE INJECTION 100 MG in NS (IVPB) 100 ML IV SCH (09:22)
[2021-02-04] MEDS: SENNA W/DOCUSATE (SENOKOT S) TABLET PO SCH (09:23)
[2021-02-04] MEDS ORDERED: RT-ALBUINH IH (11:06)
[2021-02-04] MEDS ORDERED: CEFD300C3 PO (11:06)
[2021-02-04] MEDS ORDERED: DOXY100C5 PO (11:06)
[2021-02-04] MEDS ORDERED: FAMO20TA5 PO (11:06)
[2021-02-04] MEDS ORDERED: DILT180C85 PO (11:06)
--- NOTE | 2021-02-04 11:07 | Discharge Summary ---
Diagnosis/Chief Complaint Date of Admission Feb 02, 2021 at 15:14 Date of Discharge Discharge Date: Feb 04, 2021 Discharge Diagnosis Assessment: Afib -Cardilogy consulted -Received Diltiazem and holding carvedilol -Currently Tachy -Continue to monitor -Echo this morning reviewed -HR was 91 this morning RLL PNA Leukocytosis -Pt received ABX -WBC 12.6 -Continue to monitor -Pt was 93% on RA in room Hyponatremia -139 -watch Fluids and continue to monitor -replace if needed Hyperkalemia -Pt recieved Kayexalate in ER -Continue to monitor w/ labs -4.0 today GUILLE -BUN 21 CREAT 1.16 -Improved -Do not know pt's baseline -Fluids stopped and controlling BP -Will continue to monitor T2DM -Glucose 199 -Insulin or home meds, continue to monitor -Should get sugars down a bit Hx of HTN, Bypass, Afib, CAD, smoker -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 Chronic pain on Lortab Discharge Summary Discharge Physical Examination Allergies: Coded Allergies: No Known Drug Allergies (Verified , 10/02/18) Vitals & I&Os Vital Signs Date Time Temp Pulse Resp B/P (MAP) Pulse Ox O2 Delivery O2 Flow Rate FiO2 02/04/21 13:42 82 18 136/92 97 Room Air 02/04/21 08:37 36.5 02/03/21 01:03 21 General Appearance: Alert, Oriented X3, Cooperative Respiratory: Clear to Auscultation Cardiovascular: Other (Irregular) Neuro: Normal Gait, Normal Speech, Strength at 5/5 X4 Ext Psych/Mental Status: Mental Status NL Hospital Course Was the Problem List Reviewed?: Yes Hospital course: Patient had a brief hospital course after he was admitted for A. fib with RVR with known A. fib maintained on anticoagulation cardiology was consulted. Elevated white count and hypoxia prompted work-up revealed a right lower lobe pneumonia. Patient was given aggressive IV fluids and antibiotics he improved ambulate around and wean off oxygen cardiology recommended Cardizem addition he will have close follow-up to monitor closely. Labs (last 24 hrs) Laboratory Tests 02/02/21 13:50: White Blood Count 15.1H, Red Blood Count 5.32, Hemoglobin 16.7, Hematocrit 50, Mean Corpuscular Volume 93, Mean Corpuscular Hemoglobin 31, Mean Corpuscular Hemoglobin Concent 34, Red Cell Distribution Width 13.3, Platelet Count 165, Mean Platelet Volume 10.2, Immature Granulocyte % (Auto) 1, Neutrophils (%) (Auto) 78H, Lymphocytes (%) (Auto) 12, Monocytes (%) (Auto) 9, Eosinophils (%) (Auto) 0, Basophils (%) (Auto) 1, Neutrophils # (Auto) 11.7H, Lymphocytes # (Auto) 1.9, Monocytes # (Auto) 1.3H, Eosinophils # (Auto) 0.0, Basophils # (Auto) 0.1, Immature Granulocyte # (Auto) 0.1, Neutrophils % (Manual) 73, Lymphocytes % (Manual) 14, Monocytes % (Manual) 6, Eosinophils % (Manual) 0, Basophils % (Manual) 0, Band Neutrophils 7, Blood Morphology Comment NORMAL, Prothrombin Time 16.4H, INR Comment 1.3, Activated Partial Thromboplast Time 48H , Sodium Level 130L, Potassium Level 6.2H, Chloride Level 99, Carbon Dioxide Level 20L, Anion Gap 11, Blood Urea Nitrogen 31H, Creatinine 1.87H, Estimat Glomerular Filtration Rate 35, BUN/Creatinine Ratio 17, Glucose Level 324H, Calcium Level 9.7, Corrected Calcium 9.9, Magnesium Level 2.3, Total Bilirubin 1.2H, Aspartate Amino Transf (AST/SGOT) 38H, Alanine Aminotransferase (ALT/SGPT) 18, Alkaline Phosphatase 83, Myoglobin 122.2H, Troponin I < 0.028, B-Type Natr iuretic Peptide 146.1H, Total Protein 9.5H, Albumin 3.8, Procalcitonin 0.26H 02/02/21 13:52: SARS-CoV-2 RNA (RT-PCR) Not Detected 02/02/21 14:22: Urine Color YELLOW, Urine Clarity CLEAR, Urine pH 6.0, Urine Specific [place] 1.020, Urine Protein 1+H, Urine Glucose (UA) 2+H, Urine Ketones 1+H, Urine Nitrite NEGATIVE, Urine Bilirubin NEGATIVE, Urine Urobilinogen 1.0, Urine Le ukocyte Esterase NEGATIVE, Urine RBC (Auto) 1+H, Urine RBC RARE, Urine WBC NONE, Urine Squamous Epithelial Cells 0-2, Urine Crystals NONE, Urine Bacteria NEGATIVE, Urine Casts NONE, Urine Mucus NEGATIVE, Urine Culture Indicated NO 02/02/21 15:30: Lactic Acid Level 1.42 02/02/21 18:42: Sodium Level 136, Potassium Level 4.3, Chloride Level 102, Carbon Dioxide Level 22, Anion Gap 12, Blood Urea Nitrogen 26H, Creatinine 1.56H, Estimat Glomerular Filtration Rate 44, BUN/Creatinine Ratio 17, Glucose Level 286H, Calcium Level 9.2 02/03/21 05:05: Sodium Level 139, Potassium Level 4.0, Chloride Level 107, Carbon Dioxide Level 19L, Anion Gap 13, Blood Urea Nitrogen 21H, Creatinine 1.16, Estimat Glomerular Filtration Rate 61, BUN/Creatinine Ratio 18, Glucose Level 202H, Calcium Level 8.8, White Blood Count 12.6H, Red Blood Count 4.71, Hemoglobin 14.6, Hematocrit 43, Mean Corpuscular Volume 92, Mean Corpuscular Hemoglobin 31, Mean Corpuscular Hemoglobin Concent 34, Red Cell Distribution Width 13.2, Platelet Count 150, Mean Platelet Volume 10.2, Immature Granulocyte % (Auto) 1, Neutrophils (%) (Auto) 76H, Lymphocytes (%) (Auto) 13, Monocytes (%) (Auto) 10, Eosinophils (%) (Auto) 0, Basophils (%) (Auto) 1, Neutrophils # (Auto) 9.5H, Lymphocytes # (Auto) 1.7, Monocytes # (Auto) 1.2H, Eosinophils # (Auto) 0.0, Basophils # (Auto) 0.1, Immature Granulocyte # (Auto) 0.1, Corrected Calcium 9.4, Magnesium Level 1.9, Total Bilirubin 1.0, Aspartate Amino Transf (AST/SGOT) 16, Alanine Aminotransferase (ALT/SGPT) 17, Alkaline Phosphatase 71, Total Protein 7.0, Albumin 3.3, Triglycerides Level 88, Cholesterol Level 80, LDL Cholesterol Direct 41, VLDL Cholesterol 18, HDL Cholesterol 20L 02/03/21 10:13: Glucometer 199H 02/03/21 16:03: Glucometer 212H 02/03/21 20:45: Glucometer 160H 02/04/21 05:34: Glucometer 154H 02/04/21 05:35: White Blood Count 11.6H, Red Blood Count 4.62, Hemoglobin 14.5, Hematocrit 42, Mean Corpuscular Volume 91, Mean Corpuscular Hemoglobin 31, Mean Corpuscular Hemoglobin Concent 34, Red Cell Distribution Width 13.3, Platelet Count 170, Mean Platelet Volume 10.0, Immature Granulocyte % (Auto) 1, Neutrophils (%) (Auto) 71, Lymphocytes (%) (Auto) 17, Monocytes (%) (Auto) 10, Eosinophils (%) (Auto) 1, Basophils (%) (Auto) 1, Neutrophils # (Auto) 8.2H, Lymphocytes # (Auto) 2.0, Monocytes # (Auto) 1.2H, Eosinophils # (Auto) 0.1, Basophils # (Auto) 0.1, Immature Granulocyte # (Auto) 0.1, Sodium Level 136, Potassium Level 3.7, Chloride Level 106, Carbon Dioxide Level 19L, Anion Gap 11, Blood Urea Nitrogen 14, Creatinine 0.99, Estimat Glomerular Filtration Rate 74, BUN/Creatinine Ratio 14, Glucose Level 151H, Calcium Level 8.6, Corrected Calcium 9.3, Total Bilirubin 0.8, Aspartate Amino Transf (AST/SGOT) 23, Alanine Aminotransferase (ALT/SGPT) 24, Alkaline Phosphatase 65, Total Protein 6.7, Albumin 3.1L 02/04/21 11:56: Glucometer 202H Microbiology 02/02/21 Blood Culture - Preliminary, Resulted No growth Pending Labs Microbiology Date/Time Source Procedure Growth Status 02/02/21 18:42 Peripheral Lt Ac Blood Culture - Preliminary No growth Resulted 02/02/21 15:30 Peripheral Rt Forearm Blood Culture - Preliminary No growth Resulted Laboratory Tests 02/02/21 13:50: White Blood Count 15.1, Red Blood Count 5.32, Hemoglobin 16.7, Hematocrit 50, Mean Corpuscular Volume 93, Mean Corpuscular Hemoglobin 31, Mean Corpuscular Hemoglobin Concent 34, Red Cell Distribution Width 13.3, Platelet Count 165, Mean Platelet Volume 10.2, Immature Granulocyte % (Auto) 1, Neutrophils (%) (Auto) 78, Lymphocytes (%) (Auto) 12, Monocytes (%) (Auto) 9, Eosinophils (%) (Auto) 0, Basophils (%) (Auto) 1, Neutrophils # (Auto) 11.7, Lymphocytes # (Auto) 1.9, Monocytes # (Auto) 1.3, Eosinophils # (Auto) 0.0, Basophils # (Auto) 0.1, Immature Granulocyte # (Auto) 0.1, Neutrophils % (Manual) 73, Lymphocytes % (Manual) 14, Monocytes % (Manual) 6, Eosinophils % (Manual) 0, Basophils % (Manual) 0, Band Neutrophils 7, Blood Morphology Comment NORMAL, Prothrombin Time 16.4, INR Comment 1.3, Activated Partial Thromboplast Time 48, Sodium Level 130, Potassium Level 6.2, Chloride Level 99, Carbon Dioxide Level 20, Anion Gap 11, Blood Urea Nitrogen 31, Creatinine 1.87, Estimat Glomerular Filtration Rate 35, BUN/Creatinine Ratio 17, Glucose Level 324, Calcium Level 9.7, Corrected Calcium 9.9, Magnesium Level 2.3, Total Bilirubin 1.2, Aspartate Amino Transf (AST/SGOT) 38, Alanine Aminotransferase (ALT/SGPT) 18, Alkaline Phosphatase 83, Myoglobin 122.2, Troponin I < 0.028, B-Type Natriuretic Peptide 146.1, Total Protein 9.5, Albumin 3.8, Procalcitonin 0.26 02/02/21 13:52: SARS-CoV-2 RNA (RT-PCR) Not Detected 02/02/21 14:22: Urine Color YELLOW, Urine Clarity CLEAR, Urine pH 6.0, Urine Specific [place] 1.020, Urine Protein 1+, Urine Glucose (UA) 2+, Urine Ketones 1+, Urine Nitrite NEGATIVE, Urine Bilirubin NEGATIVE, Urine Urobilinogen 1.0, Urine Leukocyte Esterase NEGATIVE, Urine RBC (Auto) 1+, Urine RBC RARE, Urine WBC NONE, Urine Squamous Epithelial Cells 0-2, Urine Crystals NONE, Urine Bacteria NEGATIVE, Urine Casts NONE, Urine Mucus NEGATIVE, Urine Culture Indicated NO 02/02/21 15:30: Lactic Acid Level 1.42 02/02/21 18:42: Sodium Level 136, Potassium Level 4.3, Chloride Level 102, Carbon Dioxide Level 22, Anion Gap 12, Blood Urea Nitrogen 26, Creatinine 1.56, Estimat Glomerular Filtration Rate 44, BUN/Creatinine Ratio 17, Glucose Level 286, Calcium Level 9.2 02/03/21 05:05: Sodium Level 139, Potassium Level 4.0, Chloride Level 107, Carbon Dioxide Level 19, Anion Gap 13, Blood Urea Nitrogen 21, Creatinine 1.16, Estimat Glomerular Filtration Rate 61, BUN/Creatinine Ratio 18, Glucose Level 202, Calcium Level 8.8, White Blood Count 12.6, Red Blood Count 4.71, Hemoglobin 14.6, Hematocrit 43, Mean Corpuscular Volume 92, Mean Corpuscular Hemoglobin 31, Mean Corpuscular Hemoglobin Concent 34, Red Cell Distribution Width 13.2, Platelet Count 150, Mean Platelet Volume 10.2, Immature Granulocyte % (Auto) 1, Neutrophils (%) (Auto) 76, Lymphocytes (%) (Auto) 13, Monocytes (%) (Auto) 10, Eosinophils (%) (Auto) 0, Basophils (%) (Auto) 1, Neutrophils # (Auto) 9.5, Lymphocytes # (Auto) 1.7, Monocytes # (Auto) 1.2, Eosinophils # (Auto) 0.0, Basophils # (Auto) 0.1, Immature Granulocyte # (Auto) 0.1, Corrected Calcium 9.4, Magnesium Level 1.9, Total Bilirubin 1.0, Aspartate Amino Transf (AST/SGOT) 16, Alanine Aminotransferase (ALT/SGPT) 17, Alkaline Phosphatase 71, Total Protein 7.0, Albumin 3.3, Triglycerides Level 88, Cholesterol Level 80, LDL Cholesterol Direct 41, VLDL Cholesterol 18, HDL Cholesterol 20 02/03/21 10:13: Glucometer 199 02/03/21 16:03: Glucometer 212 02/03/21 20:45: Glucometer 160 02/04/21 05:34: Glucometer 154 02/04/21 05:35: White Blood Count 11.6, Red Blood Count 4.62, Hemoglobin 14.5, Hematocrit 42, Mean Corpuscular Volume 91, Mean Corpuscular Hemoglobin 31, Mean Corpuscular Hemoglobin Concent 34, Red Cell Distribution Width 13.3, Platelet Count 170, Mean Platelet Volume 10.0, Immature Granulocyte % (Auto) 1, Neutrophils (%) (Auto) 71, Lymphocytes (%) (Auto) 17, Monocytes (%) (Auto) 10, Eosinophils (%) (Auto) 1, Basophils (%) (Auto) 1, Neutrophils # (Auto) 8.2, Lymphocytes # (Auto) 2.0, Monocytes # (Auto) 1.2, Eosinophils # (Auto) 0.1, Basophils # (Auto) 0.1, Immature Granulocyte # (Auto) 0.1, Sodium Level 136, Potassium Level 3.7, Chlori de Level 106, Carbon Dioxide Level 19, Anion Gap 11, Blood Urea Nitrogen 14, Creatinine 0.99, Estimat Glomerular Filtration Rate 74, BUN/Creatinine Ratio 14, Glucose Level 151, Calcium Level 8.6, Corrected Calcium 9.3, Total Bilirubin 0.8, Aspartate Amino Transf (AST/SGOT) 23, Alanine Aminotransferase (ALT/SGPT) 24, Alkaline Phosphatase 65, Total Protein 6.7, Albumin 3.1 02/04/21 11:56: Glucometer 202 Discharge Home Medications: Active Scripts Active Famotidine 20 Mg Tablet 20 Mg PO BID Diltiazem 24Hr ER (Diltiazem HCl) 180 Mg Cap.er.24h 180 Mg PO DAILY Doxycycline Hyclate 100 Mg Capsule 100 Mg PO BID Cefdinir 300 Mg Capsule 300 Mg PO BID Proair Hfa (Albuterol Sulfate) 1 Puff Puff 2 Puff IH TID 1 PUFF = 90 MCG Reported Januvia (Sitagliptin Phosphate) 100 Mg Tablet 100 Mg PO DAILY Losartan Potassium 100 Mg Tablet 100 Mg PO DAILY Eliquis (Apixaban) 5 Mg Tablet 5 Mg PO BID WITH MEALS Trulicity (Dulaglutide) 1.5 Mg/0.5 Ml Pen.injctr 1.5 Mg SQ TUE TAKES AT BEDTIME Neurontin (Gabapentin) 300 Mg Capsule 300 Mg PO TID Hydrocodone-Acetamin 10-325 mg (Hydrocodone/Acetaminophen) 1 Each Tablet 1 Ea PO TID PRN Aspirin EC (Aspirin) 81 Mg Tablet.dr 81 Mg PO HS Melatonin 10 Mg Tab.subl 10 Mg PO HS Simvastatin 20 Mg Tablet 20 Mg PO HS Ezetimibe 10 Mg Tablet 10 Mg PO HS Instructions to patient/family Please see electronic discharge instructions given to patient. Diagnosis/Problems Diagnosis/Problems (1) Atrial fibrillation with RVR Status: Acute (2) RLL pneumonia Status: Acute (3) Hyperkalemia Status: Acute (4) Dehydration Status: Acute (5) Dyspnea PATO GOLD DO Feb 04, 2021 11:07
--- NOTE | 2021-02-04 11:51 | Progress Note - Cardiology ---
Cardiology SOAP Progress Note Subjective: No cp or palp or syncope Shortness of breath is improving No swelling No n/v/d Some gen malaise but is improving Objective: I&O/Vital Signs 02/03/21 02/04/21 02/04/21 02/04/21 23:50 01:00 04:50 07:00 Temp 36.5 37.3 Pulse 78 70 86 72 Resp 20 18 B/P (MAP) 142/101 146/99 Pulse Ox 93 94 O2 Delivery Room Air Room Air 02/04/21 02/04/21 02/04/21 07:22 08:00 08:37 Temp 36.5 Pulse 77 Resp 16 B/P (MAP) 152/106 Pulse Ox 96 94 96 O2 Delivery Room Air Room Air Room Air 02/04/21 00:00 Intake Total 2100 ml Balance 2100 ml Weight (Pounds): 178 Weight (Ounces): 9.0 Weight (Calculated Kilograms): 80.457341 Constitutional: AAO x 3, well-developed, well-nourished Respiratory: No accessory muscle use, No respiratory distress; chest expansion is symmetric, chest is bilaterally symmetric, rhonchi (scattered insp/exp), other (coarse breath sounds) Cardiovascular: irregularly irregular, tachycardia, systolic murmur Gastrointestional: No tender; soft, round, audible bowel sounds Extremities: no lower extremity edema bilateral Neurologic/Psychiatric: grossly intact (moves all extremities) Skin: No rash on exposed areas, No ulcerations on exposed areas Results/Procedures: Labs Laboratory Tests 02/03/21 16:03: Glucometer 212H 02/03/21 20:45: Glucometer 160H 02/04/21 05:34: Glucometer 154H 02/04/21 05:35: White Blood Count 11.6H, Red Blood Count 4.62, Hemoglobin 14.5, Hematocrit 42, Mean Corpuscular Volume 91, Mean Corpuscular Hemoglobin 31, Mean Corpuscular Hemoglobin Concent 34, Red Cell Distribution Width 13.3, Platelet Count 170, Mean Platelet Volume 10.0, Immature Granulocyte % (Auto) 1, Neutrophils (%) (Auto) 71, Lymphocytes (%) (Auto) 17, Monocytes (%) (Auto) 10, Eosinophils (%) (Auto) 1, Basophils (%) (Auto) 1, Neutrophils # (Auto) 8.2H, Lymphocytes # (Auto) 2.0, Monocytes # (Auto) 1.2H, Eosinophils # (Auto) 0.1, Basophils # (Auto) 0.1, Immature Granulocyte # (Auto) 0.1, Sodium Level 136, Potassium Level 3.7, Chloride Level 106, Carbon Dioxide Level 19L, Anion Gap 11, Blood Urea Nit rogen 14, Creatinine 0.99, Estimat Glomerular Filtration Rate 74, BUN/Creatinine Ratio 14, Glucose Level 151H, Calcium Level 8.6, Corrected Calcium 9.3, Total Bilirubin 0.8, Aspartate Amino Transf (AST/SGOT) 23, Alanine Aminotransferase (ALT/SGPT) 24, Alkaline Phosphatase 65, Total Protein 6.7, Albumin 3.1L Microbiology 02/02/21 Blood Culture - Preliminary, Resulted No growth Laboratory Tests 02/02/21 13:50 02/02/21 18:42 02/03/21 05:05 02/04/21 05:35 A/P: Assessment: A-flutter with RVR, chronic (per pt report) followed by Dr Ren - OAC with Eliquis - Echo 02/03/21: LVEF 50-55%, biatrial enlargement, mild MR, PASP 50-55 mmHg RLL pneumonia - management per medical services Acute renal insufficiency with electrolyte abnormalities - likely secondary to intravascular vol depletion d/t poor intake; resolved CAD - reports h/o 3 vessel CABG [place] [address] 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
[2021-02-04 13:42] VITALS: BP 136/92
== END 2021-02-04 13:30 | disposition home or self-care (01) | DRG 308 ==
LOC: EDUNIT# 13:42 → ER 13:44 → CSD 15:14
PROVIDERS: ADMIT Internal Medicine; ATTEND Internal Medicine
DX: I48.91 Unspecified atrial fibrillation (principal); J18.9 Pneumonia, unspecified organism; E87.1 Hypo-osmolality and hyponatremia; N17.9 Acute kidney failure, unspecified; J44.0 Chronic obstructive pulmonary disease with (acute) lower respiratory infection; D72.829 Elevated white blood cell count, unspecified; E87.5 Hyperkalemia; Z20.822 Contact with and (suspected) exposure to COVID-19; E11.9 Type 2 diabetes mellitus without complications; I10 Essential (primary) hypertension; Z95.1 Presence of aortocoronary bypass graft; F17.210 Nicotine dependence, cigarettes, uncomplicated; E86.0 Dehydration; R09.02 Hypoxemia; R06.00 Dyspnea, unspecified; E78.00 Pure hypercholesterolemia, unspecified; M19.90 Unspecified osteoarthritis, unspecified site; Z79.82 Long term (current) use of aspirin; Z79.899 Other long term (current) drug therapy
CPT/HCPCS: 36415; 71045; 80048; 80053; 80061; 81000; 82947; 83605; 83735; 83874; 83880; 84145; 84484; 85007; 85025; 85027; 85610; 85730; 87040; 87636; 93005; 93041; 93306; 94640; 94664; 94761

== ENCOUNTER → 2021-06-20 | Outpatient (CLI) | payer MEDICARE, OTHER ==
[~2021-06-20] MED LIST changes: +APIX5TAB PO; +ASPI-1238 PO; +CARV25TA PO; +CATHETER FLUSH 10 ML SYR IV PRN; +CEFD300C3 PO; +DEXT1TAB3 PO; +DILT180C85 PO; +DOXY100C5 PO; +DULA1.5P2 SQ; +FAMO20TA5 PO; +GABA300C PO; +HOLD METFORMIN - RECEIVED CONTRAST 20 ML VIAL IV SCH; +HYDR-3820 PO; +IOHEXOL 350 MG/ML 100 ML (OMNIPAQUE 350) VIAL IV ONE; +LOSA100T57 PO; +NS 100 ML (IVPB) BAG IV ONE; +RT-ALBUINH IH; +SITA100T12 PO
[2021-06-20 09:14] LABS: CREATININE SERUM 1.39 MG/DL (0.60-1.30)
--- NOTE | 2021-06-20 10:49 | Diagnostic Imaging Report ---
EXAMINATION: CT abdomen and pelvis with intravenous contrast. TECHNIQUE: Multiple contiguous axial images were obtained through the abdomen and pelvis after the uneventful administration of intravenous contrast. All CT scans use one or more of the following dose optimizing techniques: automated exposure control, MA and/or KvP adjustment based on patient size and exam type or iterative reconstruction. HISTORY: Aortic aneurysm follow-up COMPARISON: 11/17/2019 FINDINGS: Lung bases: The lung bases are clear. Solid organs: The liver is normal without focal lesion. The gallbladder is surgically absent. Mild dilatation common bile duct likely secondary to reservoir effect from prior cholecystectomy. Pancreas is normal. Spleen is normal. Adrenal glands are normal. A right renal cortical cyst is present requires no follow-up. Mild left renal cortical scarring. No hydronephrosis. Bowel: The stomach and small bowel are normal without obstruction. The colon and appendix are normal. Peritoneum: There is no intraperitoneal free fluid or free air. No suspicious lymphadenopathy. Vasculature: There is scattered diffuse calcified and noncalcified plaque seen throughout the aorta and branching vessels. Shared origin of the celiac and SMA which is patent. Mild stenosis of the bilateral renal arteries. Stable aneurysmal dilatation of the infrarenal abdominal aorta measuring 3.2 cm. No dissection. Musculoskeletal: Degenerative changes of the spine without suspicious osseous lesion or compression fracture. Pelvis: The prostate gland is normal. The urinary bladder is normal. IMPRESSION: 1. Stable aneurysmal dilatation of the infrarenal abdominal aorta measuring up to 3.2 cm. 2. No other acute abnormality in the abdomen or pelvis. Dictated by: Dictated on workstation # [id number]
== END ==
PROVIDERS: ATTEND Internal Medicine
DX: I79.0 Aneurysm of aorta in diseases classified elsewhere (principal)
CPT/HCPCS: 36415; 74177; 82565; 84520

== ENCOUNTER → 2021-11-02 | Outpatient (CLI) | payer MEDICARE, OTHER ==
[~2021-11-02] MED LIST changes: -DEXT1TAB3 PO; +DEXT1TAB5 PO
[2021-11-02 09:09] LABS: CREATININE SERUM 1.39 MG/DL (0.60-1.30)
--- NOTE | 2021-11-02 10:35 | Diagnostic Imaging Report ---
PROCEDURE: CT chest, abdomen, and pelvis with contrast. TECHNIQUE: Multiple contiguous axial images were obtained through the chest, abdomen, and pelvis after the administration of intravenous contrast. Auto Exposure Controls were utilized during the CT exam to meet ALARA standards for radiation dose reduction. INDICATION: Abdominal aortic aneurysm. Correlation is made with prior CT chest from 11/17/[address] abdomen pelvis from 06/20/2021. CT CHEST: The ascending thoracic aorta appears to be stable at 4.4 cm AP. The aortic arch and descending thoracic aorta are of normal caliber. There is no dissection. There is moderate plaquing identified in the descending thoracic aorta. No pericardial or pleural fluid is detected. Emphysematous changes throughout both lungs are noted. No pulmonary mass, nodule or infiltrate is detected. IMPRESSION: Stable ascending thoracic aorta when compared with exam from 11/17/2019. CT ABDOMEN AND PELVIS: No focal liver mass is detected. Gallbladder is surgically absent. There is no biliary ductal dilatation. Pancreas and spleen are unremarkable. No adrenal mass is detected. Kidneys appear to be stable. Cyst lower pole right kidney is stable. Infrarenal abdominal aortic aneurysm is stable at approximately 3.2 cm. Marked irregular plaquing and probable chronic short segment dissection of the infrarenal abdominal aorta appears stable. There is no evidence of leakage or rupture. Aorta terminates above the bifurcation. Iliac vessels are heavily calcified as well but appear to be patent. Bowel loops are of normal caliber. There is no obstruction. No free fluid or fluid collection is seen. The bladder is decompressed. Prostate is unremarkable. IMPRESSION: 1. Stable CT abdomen pelvis since exam from 06/20/2021. Infrarenal abdominal aortic aneurysm is stable. There is no evidence of leakage or rupture. No acute features identified. Dictated by: Dictated on workstation # [id number]
== END ==
LOC: RAD 08:27
PROVIDERS: ATTEND Internal Medicine
DX: I71.4 Abdominal aortic aneurysm, without rupture (principal)
CPT/HCPCS: 36415; 71260; 74177; 82565; 84520

== ENCOUNTER → 2022-02-28 | Outpatient (CLI) | payer MEDICARE, OTHER ==
[~2022-02-28] MED LIST changes: +ALBU8.5H6 IH; -CATHETER FLUSH 10 ML SYR IV PRN; -HOLD METFORMIN - RECEIVED CONTRAST 20 ML VIAL IV SCH; -IOHEXOL 350 MG/ML 100 ML (OMNIPAQUE 350) VIAL IV ONE; -NS 100 ML (IVPB) BAG IV ONE; -RT-ALBUINH IH
[2022-02-28 10:10] LABS: ALBUMIN 4.1 GM/DL (3.2-4.5); BILIRUBIN,TOTAL 0.5 MG/DL (0.1-1.0); CALCIUM 9.3 MG/DL (8.5-10.1); CREATININE SERUM 1.87 MG/DL (0.60-1.30); POTASSIUM 4.5 MMOL/L (3.6-5.0); TOTAL PROTEIN 7.5 GM/DL (6.4-8.2)
== END ==
LOC: RAD 10:45
PROVIDERS: ATTEND Internal Medicine
DX: I71.9 Aortic aneurysm of unspecified site, without rupture (principal); R91.1 Solitary pulmonary nodule; I10 Essential (primary) hypertension
CPT/HCPCS: 36415; 80053

== ENCOUNTER → 2022-03-05 | Outpatient (CLI) | payer MEDICARE, OTHER ==
--- NOTE | 2022-03-05 12:46 | Diagnostic Imaging Report ---
PROCEDURE: CT chest, abdomen, and pelvis without contrast. TECHNIQUE: Multiple contiguous axial images were obtained through the chest, abdomen, and pelvis without the use of intravenous contrast. Auto Exposure Controls were utilized during the CT exam to meet ALARA standards for radiation dose reduction. INDICATION: Followup aortic aneurysm. Comparison is made with prior CT from 11/02/2021. CT CHEST: The ascending thoracic aorta stable at 4.3 cm. Aorta arch and descending thoracic aorta are unremarkable. There is no pericardial or pleural fluid. There are changes of median sternotomy. Centrilobular emphysematous changes are identified in both lungs. No pulmonary masses are identified. There is some minimal patchy groundglass infiltrate in the upper lobes bilaterally, perhaps on an infectious/inflammatory basis. No axillary, hilar or mediastinal lymphadenopathy is seen. IMPRESSION: 1. Stable ascending thoracic aorta when compared to examination from October 2021. 2. Minimal patchy groundglass infiltrate bilateral upper lobes, perhaps on an infectious/inflammatory basis. CT ABDOMEN AND PELVIS: No focal liver mass is identified. Gallbladder appears to be surgically absent. The pancreas and spleen are unremarkable. No adrenal mass is identified. There are several punctate nonobstructing calculi in the right kidney. Exophytic cyst extending from the lower pole right kidney appears to be stable. There is no hydronephrosis. No ureteral calculi are detected. Left kidney does appear to be somewhat atrophic. Abdominal aorta is heavily calcified. The infrarenal abdominal aorta is borderline aneurysmal at 3.1 cm, stable when compared with prior exam. Iliacs are heavily calcified. The bowel loops are nonobstructed. There is no ascites. No inflammatory changes are seen. Bladder is decompressed. Prostate is unremarkable. There are fat-containing inguinal hernias bilaterally. Bony structures are nonacute. IMPRESSION: Stable CT abdomen and pelvis when compared with exam from 11/02/2021. Infrarenal abdominal aorta is stable in caliber. Dictated by: Dictated on workstation # [id number]
== END ==
LOC: RAD 12:06
PROVIDERS: ATTEND Internal Medicine
DX: I71.9 Aortic aneurysm of unspecified site, without rupture (principal); R91.1 Solitary pulmonary nodule
CPT/HCPCS: 71250; 74176